=== PATIENT | female | born 1975 | race Caucasian/White ===

== ENCOUNTER 2020-05-04 15:37 | Outpatient (CLI) | payer BC, SELFPAY ==
--- NOTE | ~2020-05-04 | MR_ITS ---
EXAMINATION: MR brain IAC wo con DATE: 05/04/2020 16:45 INDICATION: Benign neoplasm of cerebral meninges. TECHNIQUE: Magnetic resonance imaging (MRI) of the brain, brainstem, and internal auditory canals was performed without intravenous contrast. Sequences included sagittal and axial T1-weighted FSE, axial diffusion-weighted FS EPI, axial T2*-weighted GRE, axial T2-weighted FLAIR Propeller, axial T2-weigh toya Propeller, small jwlnx-pt-[id number] coronal FIESTA, coronal FSPGR, coronal T2-weighted FLAIR, small fi eld-of-view coronal T1-weighted FSE, and small [id number]-th-bvtq axial T1-weighted SPGR. Apparent diffusi on coefficient (ADC) maps were created. COMPARISON: Brain MRI 04/08/2019, CT 05/20/2008 FINDINGS: There is 11 x 6 mm calcified extra-axial mass overlying left parietal lobe. There are scatt ered areas of nonspecific increased T2-weighted signal intensity in the cerebral white matter, which is within normal limits for the patient's age. There is no acute ischemic infarct or intracranial hem orrhage. The ventricles are normal in size. The orbits are normal. The paranasal sinuses are clear. T he mastoid air cells are normal. IMPRESSION: 1. Stable 11 x 6 mm calcified extra-axial mass overlying left parietal lobe, consistent with a mening ioma. Reviewed, dictated and finalized at location A. IMPRESSION: 1. Stable 11 x 6 mm calcified extra-axial mass overlying left parietal lobe, co nsistent with a meningioma.
== END 2020-05-04 15:38 | disposition home or self-care (01) ==
LOC: ANHIMG 15:40
PROVIDERS: PCP Emergency Medicine; Visit Provider Emergency Medicine
DX: D16.9 Benign neoplasm of bone and articular cartilage, unspecified (principal); D32.0 Benign neoplasm of cerebral meninges; R42 Dizziness and giddiness; R56.9 Unspecified convulsions
CPT/HCPCS: 70551

== ENCOUNTER 2020-06-08 15:46 | Outpatient (CLI) | payer BC, SELFPAY ==
--- NOTE | ~2020-06-08 | CT_ITS ---
EXAMINATION: CT brain wo con EXAM DATE: 06/08/2020 16:33 INDICATION: Dizziness, giddiness. TECHNIQUE: Spiral CT of the head was performed without contrast. Axial, coronal and sagittal images were reviewed. The dose-length product (DLP) for this examination was 605.33 mGy-cm. The exposure w as tailored according to patient size, and iterative reconstruction (ASIR) was used as additional dos e reduction technique. There is no prior study for comparison. FINDINGS: There is no acute intraparenchymal hemorrhage. No evidence of intraparenchymal brain mass lesion. No evidence of acute infarction. There is no mass effect or midline shift. The ventricles are normal in size. There are no extra-axial collections. There are no acute calvarial fractures. T he orbits are unremarkable. Soft tissue is unremarkable. The visualized sinuses and mastoid air madison ls are well aerated. IMPRESSION: 1. Normal head CT examination. Reviewed, dictated and finalized at location B.
== END 2020-06-08 15:47 | disposition home or self-care (01) ==
PROVIDERS: Visit Provider Emergency Medicine
DX: R42 Dizziness and giddiness (principal); D32.0 Benign neoplasm of cerebral meninges; R56.9 Unspecified convulsions
CPT/HCPCS: 70450

== ENCOUNTER 2020-06-16 10:03 | Emergency (ER) | payer BC, SELFPAY ==
[2020-06-16] VITALS (18 sets, daily range): BP systolic 110–137; BP diastolic 74–92; PULSE 59–79; RESP 13–31; TEMP 36.6; O2SAT 97–100
--- NOTE | ~2020-06-16 | CT_ITS ---
EXAMINATION: CT brain wo con DATE: 06/16/2020 11:55 INDICATION: Seizure. TECHNIQUE: Computed tomography (CT) of the head was performed without intravenous contrast. The mA wa s adjusted according to patient size. Iterative reconstruction technique was employed. The dose-lengt h product was 605.33 mGy-cm. COMPARISON: Head CT 06/08/2020, brain MRI 05/04/2020 FINDINGS: There is a calcified 11 x 6 x 15 mm extra-axial mass overlying left parietal lobe, consiste nt with a meningioma. There is no acute ischemic infarct or intracranial hemorrhage. The ventricles a re normal in size. The orbits are normal. The paranasal sinuses are clear. The mastoid air cells are normal. IMPRESSION: 1. Stable calcified extra-axial mass overlying left parietal lobe, consistent with a meningioma. Reviewed, dictated and finalized at location A. IMPRESSION: 1. Stable calcified extra-axial mass overlying left parietal lobe, consistent w ith a meningioma.
--- NOTE | 2020-06-16 10:10 | ECG_ITS ---
Measurements Intervals [place] Rate: 71 P: 46 [place]: 175 QRS: -13 QRSD: 89 T: 17 QT: 403 QTc: 440 Interpretive Statements SINUS RHYTHM RSR' IN V1 OR V2, CONSIDER RIGHT VENTRICULAR HYPERTROPHY OR RIGHT VCD LOW QRS VOLTAGE IN PRECORDIAL LEADS BORDERLINE T WAVE ABNORMALITY- ANT/INF LEADS BASELINE ARTIFACT- I, II, AVR, AVL, AVF, V5 BORDERLINE ECG Electronically Signed On 06-16-2020 10:21:57 CDT by Vic Matthew D.O.
[2020-06-16 10:58] LABS: Basophils Absolute Auto 0.1 K/mm3 (0.0-0.1); Basophils Percent Auto 0.7 % (0.2-1.2); Eosinophils Absolute Auto 0.5 K/mm3 (0-0.3); Hematocrit 42.9 % (37.0-47.0); Hemoglobin 13.9 g/dL (12.0-15.0); Immature Granulocyte Absolute 0.02 K/mm3 (0.00-0.031); Immature Granulocyte Percent A 0.3 % (0-0.5); Lymphocytes Absolute Auto 2.47 K/mm3 (0.9-3.2); Lymphocytes Percent Auto 32.7 % (18.3-44.2); Mean Corpuscular HGB Conc 32.4 g/dl (32-36); Mean Corpuscular Hemoglobin 27.7 pg (26-34); Mean Corpuscular Volume 85.5 fl (80-100); Mean Platelet Volume 10.5 fl (7.4-10.4); Monocytes Absolute Auto 0.5 K/mm3 (0.1-0.6); Monocytes Percent Auto 6.8 % (2.6-8.5); Neutrophils Absolute Auto 4.1 K/mm3 (1.3-6.7); Neutrophils Percent Auto 53.5 % (45.5-73.1); Platelet Count Result 286 k/mm3 (150-375); Red Blood Count 5.02 M/mm3 (4.2-5.4); Red Cell Distribution Width 13.4 % (11.5-14.5); White Blood Count 7.6 K/mm3 (4.5-10.0)
[2020-06-16 11:15] LABS: Alanine Aminotransferase 19 U/L (4-35); Albumin Level 4.2 g/dL (3.5-5.1); Alkaline Phosphatase 110 U/L (38-126); Anion Gap 10 mmol/L (8-16); Aspartate Amino Transferase 22 U/L (14-36); Bilirubin,Total 0.6 mg/dL (0.2-1.3); Blood Urea Nitrogen 9 mg/dL (7-17); Calcium 9.7 mg/dL (8.4-10.2); Carbon Dioxide 28 mmol/L (22-30); Chloride 103 mmol/L (98-107); Estimated CRCL calculation 87 ml/min; Estimated Glomerular Filt Rate > 60; Glucose 102 mg/dL (65-105); Potassium 3.8 mmol/L (3.4-5.0); Sodium 141 mmol/L (137-145)
[2020-06-16] MEDS: levETIRAcetam 1000MG/NACL100ML 1,000 MG/100 ML BAG 400 MG IVPB (11:34)
--- NOTE | 2020-06-16 11:39 | ED.SEIZURE ---
HPI - Seizure General Chief Complaint: Seizure Stated Complaint: SZ Time Seen by Provider: 06/16/20 10:18 Source: patient and family Limitations: no limitations History of Present Illness HPI Narrative: 44 years old white female presents with frequent seizure prior to arrival to the emergency room up to 3 times. Patient reports having the first seizure 1-1/2-year ago, had a new diagnosis of benign brain tumor and is scheduled for surgery at [facility] July 06, 2020. Patient started on Keppra 7 days ago. Patient reports having at least 3 seizures over the last 7 days but today had 3 of them [id number]. Patient reported having some nausea and not feeling well sometimes dizziness of vertigo subsequently followed by seizure. With loss of consciousness, generalized body convulsion, usually last up to 3 minutes followed by postictal confusion and lethargy up to 1 hour. The description of the seizure per patient . Currently patient feeling headache and nausea. Denies any pain. Related Data Home Medications Medication Instructions Recorded Confirmed estradiol 1 mg tablet 1 mg PO DAILY 04/28/20 Allergies Allergy/AdvReac Type Severity Reaction Status Date / Time iodixanol Allergy Mild itchey Verified 05/02/19 14:13 throat, hives, shaking, sneezing ioversol Allergy Unknown Verified 01/21/19 15:21 meperidine Allergy Unknown Verified 01/21/19 15:21 Contrast Media Allergy Intermediate Hives / Uncoded 05/02/19 14:13 Red Face Review of Systems Review of Systems: Narrative: CONSTITUTIONAL: Denies fever, chills, or sweats. EYES: Denies visual changes, redness, or discharge. ENT: Denies rhinorrhea, congestion, sore throat, or otalgia. CARDIOVASCULAR: Denies chest pain, palpitations, or edema. RESPIRATORY: Denies cough or dyspnea. GASTROINTESTINAL: Denies abdominal pain, nausea, vomiting, or diarrhea. GENITOURINARY: Denies dysuria or hematuria. SKIN: Denies rash or itching. MUSCULOSKELETAL: Denies back pain, joint pain, or myalgia. NEUROLOGIC: Denies headache, numbness, or weakness. PSYCHIATRIC: Denies anxiety or depression. [facility] Past Medical History Medical History (Updated 06/16/20 @ 12:57 by Jewel Lord MD) Depression Family History Family History Grandparent Family history of malignant neoplasm of breast Mother Diabetes mellitus Hypertension Patient's mother is in good health Father Patient's father is in good health Other Cerebrovascular accident Family history of alcoholism Family history of arthritis Family history of atrial fibrillation Family history of cardiovascular disease Family history of chronic obstructive pulmonary disease Family history of hepatitis Family history of lung cancer Family history of malignant neoplasm of male breast Family history of osteoporosis Social History Social History Smoking status: Never smoker Alcohol intake: current Exam Narrative: Exam Narrative: General appearance: Well-developed, well-nourished Skin: Normal color Head: Normocephalic, nontraumatic Eyes: Clear conjunctiva ENT: Oropharynx normal, ears normal, nose normal Neck: Supple, nontender Chest and respiratory: Airway patent, no respiratory distress, no accessory muscle use Heart: Regular rate/rhythm Abdomen: Soft, nontender, no organomegaly, quiet bowel sounds Vascular: Normal peripheral pulses, normal capillary refill. 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
[2020-06-16] MEDS: MORPHINE SULFATE (*CRX) 4 MG/ML INJ IV PUSH (12:25)
[2020-06-16 12:27] LABS: Add Urine Microscopic? NO; Appearance Urine Clear (Clear); Bilirubin Urine Negative (Negative); Blood Urine Negative (Negative); Color Urine Straw (Yellow); Glucose Urine UA Negative (Negative); Ketones Urine Negative (Negative); Leukocyte Esterase Ur Negative LEU/UL (Negative); Nitrate Urine Negative (Negative); Protein Urine Negative (Negative); Specific Grav Ur 1.006 (1.001-1.035); Urobilinogen Urine Negative mg/dL (<2.0)
== END 2020-06-16 14:02 | disposition home or self-care (01) ==
PROVIDERS: Emergency Provider Emergency Medicine
DX: G40.909 Epilepsy, unspecified, not intractable, without status epilepticus (principal); F32.9 Major depressive disorder, single episode, unspecified
CPT/HCPCS: 36415; 70450; 80053; 81003; 81025; 85025; 93005; 96374; 96375; 99284; J1953; J2270

== ENCOUNTER 2021-04-12 14:43 | Outpatient (CLI) | payer BC, SELFPAY ==
[2021-04-12 15:18] LABS: Hematocrit 43.7 % (37.0-47.0); Hemoglobin 13.6 g/dL (12.0-15.0); Mean Corpuscular HGB Conc 31.1 g/dl (32-36); Mean Corpuscular Hemoglobin 27.1 pg (26-34); Mean Corpuscular Volume 87.1 fl (80-100); Mean Platelet Volume 10.2 fl (7.4-10.4); Platelet Count Result 319 k/mm3 (150-375); Red Blood Count 5.02 M/mm3 (4.2-5.4); Red Cell Distribution Width 13.9 % (11.5-14.5); White Blood Count 10.2 K/mm3 (4.5-10.0)
[2021-04-12 15:37] LABS: Transferrin 270 mg/dL (206-381)
[2021-04-12 17:08] LABS: Iron 41 ug/dL (37-170)
[2021-04-12 17:19] LABS: Percent Iron Saturation 13 % (20-50)
== END 2021-04-12 14:44 | disposition home or self-care (01) ==
PROVIDERS: PCP Emergency Medicine; Visit Provider Internal Medicine Gastroenterology
DX: K92.2 Gastrointestinal hemorrhage, unspecified (principal); R10.84 Generalized abdominal pain; K92.1 Melena
CPT/HCPCS: 36415; 82728; 83540; 83550; 84466; 85027

== ENCOUNTER 2021-04-19 12:17 | Outpatient (CLI) | payer BC, SELFPAY ==
[2021-04-19 13:21] LABS: Hematocrit 44.8 % (37.0-47.0); Mean Corpuscular HGB Conc 31.3 g/dl (32-36); Mean Corpuscular Hemoglobin 26.8 pg (26-34); Mean Corpuscular Volume 85.8 fl (80-100); Platelet Count Result 314 k/mm3 (150-375); Red Blood Count 5.22 M/mm3 (4.2-5.4); Red Cell Distribution Width 13.6 % (11.5-14.5); White Blood Count 12.9 K/mm3 (4.5-10.0)
[2021-04-19 13:32] LABS: Cholesterol 237 mg/dL (0-200); HDL Direct 81 mg/dL; Triglycerides 138 mg/dL (<150)
[2021-04-19 13:49] LABS: LDL Cholesterol Direct 115 mg/dL
[2021-04-19 15:13] LABS: Vitamin D 25 Hydroxy 43.8 ng/mL
[2021-04-19 15:29] LABS: Erythrocyte Sedimentation Rate 19 mm/hr (0-20)
[2021-04-19 18:13] LABS: Rheumatoid Factor > 120.0 IU/ML (<12)
[2021-04-19 19:12] LABS: Iron 101 ug/dL (37-170); Percent Iron Saturation 29 % (20-50)
== END 2021-04-19 12:18 | disposition home or self-care (01) ==
PROVIDERS: PCP Emergency Medicine; Visit Provider Emergency Medicine
DX: Z00.00 Encounter for general adult medical examination without abnormal findings (principal)
CPT/HCPCS: 36415; 80061; 82306; 82728; 83540; 83550; 84439; 84443; 85027; 85652; 86038; 86430

== ENCOUNTER 2021-07-12 10:25 | Outpatient (CLI) | payer BC, SELFPAY ==
[2021-07-12 10:41] LABS: Basophils Absolute Auto 0.1 K/mm3 (0.0-0.1); Basophils Percent Auto 0.5 % (0.2-1.2); Eosinophils Absolute Auto 0.5 K/mm3 (0-0.3); Eosinophils Percent Auto 4.9 % (0-4.4); Hematocrit 44.4 % (37.0-47.0); Hemoglobin 14.3 g/dL (12.0-15.0); Immature Granulocyte Absolute 0.02 K/mm3 (0.00-0.031); Immature Granulocyte Percent A 0.2 % (0-0.5); Lymphocytes Percent Auto 32.4 % (18.3-44.2); Mean Corpuscular HGB Conc 32.2 g/dl (32-36); Mean Corpuscular Hemoglobin 26.9 pg (26-34); Mean Corpuscular Volume 83.5 fl (80-100); Mean Platelet Volume 10.1 fl (7.4-10.4); Monocytes Absolute Auto 0.6 K/mm3 (0.1-0.6); Monocytes Percent Auto 6.6 % (2.6-8.5); Neutrophils Absolute Auto 5.1 K/mm3 (1.3-6.7); Neutrophils Percent Auto 55.4 % (45.5-73.1); Platelet Count Result 335 k/mm3 (150-375); Red Blood Count 5.32 M/mm3 (4.2-5.4); Red Cell Distribution Width 13.3 % (11.5-14.5); White Blood Count 9.3 K/mm3 (4.5-10.0)
[2021-07-12 11:19] LABS: Alanine Aminotransferase 35 U/L (4-35); Albumin Level 4.9 g/dL (3.5-5.1); Alkaline Phosphatase 112 U/L (38-126); Anion Gap 6 mmol/L (8-16); Aspartate Amino Transferase 40 U/L (14-36); Bilirubin,Total 0.6 mg/dL (0.2-1.3); Blood Urea Nitrogen 12 mg/dL (7-17); CRP 1.2 mg/dL (<1.0); Calcium 10.3 mg/dL (8.4-10.2); Carbon Dioxide 29 mmol/L (22-30); Chloride 103 mmol/L (98-107); Estimated Glomerular Filt Rate > 60; Glucose 109 mg/dL (65-110); Potassium 4.3 mmol/L (3.4-5.0); Sodium 138 mmol/L (137-145)
[2021-07-12 12:07] LABS: Erythrocyte Sedimentation Rate 21 mm/hr (0-20)
== END 2021-07-12 10:26 | disposition home or self-care (01) ==
LOC: ANHLAB 10:28
PROVIDERS: PCP Emergency Medicine; Visit Provider Internal Medicine Hematology & Oncology
DX: D72.829 Elevated white blood cell count, unspecified (principal)
CPT/HCPCS: 36415; 80053; 85025; 85652; 86140; 88184

== ENCOUNTER 2021-09-09 13:43 | Outpatient (CLI) | payer BC, SELFPAY ==
--- NOTE | ~2021-09-09 | XR_ITS ---
EXAMINATION: XR chest 2V EXAM DATE: 09/09/2021 14:00 INDICATION: UPI TECHNIQUE: Frontal and lateral projections of the chest obtained and reviewed. There is no prior madelin dy for comparison. FINDINGS: The lungs are clear. There are no pleural effusions. The cardiomediastinal silhouette is within normal limits. There is no pneumothorax suspected. The bones and soft tissues are unremarkab le. There are cholecystectomy clips. The IMPRESSION: No acute cardiopulmonary findings. Reviewed, dictated and finalized at location A. DITARY CANCER PROGRAM COORDINATOR
== END 2021-09-09 13:44 | disposition home or self-care (01) ==
LOC: ANHIMG 13:47
PROVIDERS: PCP Emergency Medicine; Visit Provider Emergency Medicine
DX: J06.9 Acute upper respiratory infection, unspecified (principal); R05.9 Cough, unspecified
CPT/HCPCS: 71046

== ENCOUNTER → 2021-09-15 11:31 | Outpatient (CLI) | payer BC, SELFPAY ==
[2021-09-15 21:18] LABS: SARS-CoV-2 RNA PCR Negative
== END ==
PROVIDERS: PCP Emergency Medicine; Visit Provider Emergency Medicine
DX: J06.9 Acute upper respiratory infection, unspecified (principal); Z20.822 Contact with and (suspected) exposure to COVID-19
CPT/HCPCS: C9803; U0003; U0005

== ENCOUNTER 2021-09-23 13:53 | Outpatient (CLI) | payer BC, SELFPAY ==
--- NOTE | ~2021-09-23 | MM_ITS ---
EXAMINATION: MM screening [facility] BI w dimas HISTORY: Screening TECHNIQUE: Craniocaudal and mediolateral oblique 3-D tomosynthesis images were obtained and synthetic 2-D images were generated. CAD analysis was submitted and interpreted. COMPARISON: Comparison to multiple prior studies sequentially, with oldest reviewed study dated 04/2015. BREAST PARENCHYMAL COMPOSITION: There are scattered areas of fibroglandular density. FINDINGS: There is no evidence of suspicious mass, calcification, or architectural distortion to sugg est malignancy in either breast. There has been no suspicious interval change. IMPRESSION: 1. No mammographic evidence of malignancy. 2. Recommend routine screening mammography in one year. BI-RADS Category 1: Negative Reviewed, dictated and finalized at location A. RVISOR FISHING
== END 2021-09-23 13:54 | disposition home or self-care (01) ==
PROVIDERS: PCP Emergency Medicine; Visit Provider Obstetrics & Gynecology
DX: Z12.31 Encounter for screening mammogram for malignant neoplasm of breast (principal)
CPT/HCPCS: 77063; 77067

== ENCOUNTER 2021-10-26 13:45 | Outpatient (CLI) | payer BC, SELFPAY ==
[2021-10-26 14:20] LABS: Hematocrit 41.7 % (37.0-47.0); Hemoglobin 13.6 g/dL (12.0-15.0); Mean Corpuscular HGB Conc 32.6 g/dl (32-36); Mean Corpuscular Hemoglobin 27.5 pg (26-34); Mean Corpuscular Volume 84.4 fl (80-100); Mean Platelet Volume 10.3 fl (7.4-10.4); Platelet Count Result 283 k/mm3 (150-375); Red Blood Count 4.94 M/mm3 (4.2-5.4); Red Cell Distribution Width 14.1 % (11.5-14.5); White Blood Count 9.3 K/mm3 (4.5-10.0)
== END 2021-10-26 13:46 | disposition home or self-care (01) ==
LOC: ANHLAB 13:47
PROVIDERS: PCP Emergency Medicine; Visit Provider Emergency Medicine
DX: R11.2 Nausea with vomiting, unspecified (principal); D72.829 Elevated white blood cell count, unspecified
CPT/HCPCS: 36415; 85027

== ENCOUNTER 2022-03-30 16:10 | Outpatient (CLI) | payer BC, SELFPAY ==
--- NOTE | ~2022-03-30 | XR_ITS ---
EXAMINATION: XR chest 2V 03/30/2022 16:24 INDICATION: Cough and wheezing. Shortness of breath. PROCEDURE: 2 view chest COMPARISON: Comparison to multiple prior studies sequentially, with oldest reviewed study dated 05/2010. FINDINGS: The lungs are clear. The cardiomediastinal silhouette is within normal limits. There are no pleural effusions. There is no pneumothorax suspected. IMPRESSION: 1: NO ACUTE CARDIOPULMONARY DISEASE. Reviewed, dictated and finalized at location A.
== END 2022-03-30 16:11 | disposition home or self-care (01) ==
PROVIDERS: PCP Emergency Medicine; Visit Provider Emergency Medicine
DX: R05.9 Cough, unspecified (principal); R06.2 Wheezing; R06.02 Shortness of breath
CPT/HCPCS: 71046

== ENCOUNTER 2022-04-04 12:41 | Outpatient (CLI) | payer BC, SELFPAY ==
[2022-04-04 13:01] LABS: Hematocrit 45.6 % (37.0-47.0); Hemoglobin 14.3 g/dL (12.0-15.0); Mean Corpuscular HGB Conc 31.4 g/dl (32-36); Mean Platelet Volume 10.1 fl (7.4-10.4); Platelet Count Result 344 k/mm3 (150-375); Red Cell Distribution Width 14.5 % (11.5-14.5); White Blood Count 10.5 K/mm3 (4.5-10.0)
[2022-04-04 13:19] LABS: Alanine Aminotransferase 48 U/L (6-35); Albumin Level 4.7 g/dL (3.5-5.1); Alkaline Phosphatase 100 U/L (38-126); Anion Gap 12 mmol/L (8-16); Aspartate Amino Transferase 35 U/L (14-36); Bilirubin,Total 0.6 mg/dL (0.2-1.3); Blood Urea Nitrogen 16 mg/dL (7-17); Calcium 9.4 mg/dL (8.4-10.2); Carbon Dioxide 25 mmol/L (22-30); Chloride 103 mmol/L (98-107); Cholesterol 264 mg/dL (0-200); Estimated Glomerular Filt Rate > 60; Glucose 114 mg/dL (65-110); HDL Direct 61 mg/dL; Sodium 140 mmol/L (137-145); Triglycerides 238 mg/dL (<150)
[2022-04-04 13:29] LABS: LDL Cholesterol Direct 152 mg/dL
[2022-04-04 13:43] LABS: Iron 91 ug/dL (37-170)
[2022-04-04 13:52] LABS: Percent Iron Saturation 24 % (20-50)
[2022-04-04 13:59] LABS: Free T4 Free Thyroxine 0.99 ng/mL (0.78-2.19)
== END 2022-04-04 12:42 | disposition home or self-care (01) ==
LOC: ANHLAB 12:43
PROVIDERS: PCP Emergency Medicine; Visit Provider Emergency Medicine
DX: F41.9 Anxiety disorder, unspecified (principal); F32.9 Major depressive disorder, single episode, unspecified; E78.5 Hyperlipidemia, unspecified; R56.9 Unspecified convulsions
CPT/HCPCS: 36415; 80053; 80061; 83540; 83550; 84439; 84443; 85027

== ENCOUNTER 2022-04-06 14:57 | Outpatient (CLI) | payer BC, SELFPAY ==
[2022-04-06 20:12] LABS: Hepatitis B Surface Antigen Negative (Negative)
[2022-04-06 20:18] LABS: HAV RESULT Negative (Negative); Hepatitis B Core IgM Result Negative (Negative)
[2022-04-06 20:30] LABS: Hepatitis C Virus Antibody Negative (Negative)
[2022-04-09 03:07] LABS: Thyroid Peroxidase Antibodies <1 IU/mL (<9)
[2022-04-09 11:24] LABS: Triiodothyronine T3 Free 2.8 pg/mL (2.3-4.2)
== END 2022-04-06 14:58 | disposition home or self-care (01) ==
LOC: ANHLAB 15:04
PROVIDERS: PCP Emergency Medicine; Visit Provider Emergency Medicine
DX: R94.5 Abnormal results of liver function studies (principal)
CPT/HCPCS: 36415; 80074; 84481; 86376

== ENCOUNTER 2022-04-07 11:46 | Outpatient (CLI) | payer BC, SELFPAY ==
[2022-04-07 12:07] LABS: Basophils Absolute Auto 0.1 K/mm3 (0.0-0.1); Basophils Percent Auto 0.6 % (0.2-1.2); Eosinophils Absolute Auto 0.5 K/mm3 (0-0.3); Eosinophils Percent Auto 4.6 % (0-4.4); Hematocrit 43.9 % (37.0-47.0); Hemoglobin 13.8 g/dL (12.0-15.0); Immature Granulocyte Absolute 0.03 K/mm3 (0.00-0.031); Immature Granulocyte Percent A 0.3 % (0-0.5); Lymphocytes Absolute Auto 3.73 K/mm3 (0.9-3.2); Lymphocytes Percent Auto 33.2 % (18.3-44.2); Mean Corpuscular HGB Conc 31.4 g/dl (32-36); Mean Corpuscular Hemoglobin 26.7 pg (26-34); Mean Corpuscular Volume 84.9 fl (80-100); Mean Platelet Volume 9.9 fl (7.4-10.4); Monocytes Absolute Auto 0.8 K/mm3 (0.1-0.6); Monocytes Percent Auto 7.1 % (2.6-8.5); Neutrophils Absolute Auto 6.1 K/mm3 (1.3-6.7); Neutrophils Percent Auto 54.2 % (45.5-73.1); Platelet Count Result 345 k/mm3 (150-375); Red Blood Count 5.17 M/mm3 (4.2-5.4); Red Cell Distribution Width 14.4 % (11.5-14.5); White Blood Count 11.2 K/mm3 (4.5-10.0)
[2022-04-07 12:16] LABS: Alanine Aminotransferase 35 U/L (6-35); Albumin Level 4.6 g/dL (3.5-5.1); Alkaline Phosphatase 98 U/L (38-126); Anion Gap 10 mmol/L (8-16); Aspartate Amino Transferase 27 U/L (14-36); Bilirubin,Total 0.5 mg/dL (0.2-1.3); Blood Urea Nitrogen 14 mg/dL (7-17); Calcium 9.4 mg/dL (8.4-10.2); Carbon Dioxide 25 mmol/L (22-30); Chloride 103 mmol/L (98-107); Estimated Glomerular Filt Rate > 60; Glucose 111 mg/dL (65-110); Sodium 138 mmol/L (137-145)
== END 2022-04-07 11:47 | disposition home or self-care (01) ==
LOC: ANHLAB 11:49
PROVIDERS: PCP Emergency Medicine; Visit Provider Emergency Medicine
DX: D72.829 Elevated white blood cell count, unspecified (principal)
CPT/HCPCS: 36415; 80053; 85025

== ENCOUNTER → 2022-04-11 08:23 | Outpatient (CLI) | payer BC, SELFPAY ==
--- NOTE | ~2022-04-11 | US_ITS ---
US abdomen limited INDICATION: Limited liver enzymes. Post cholecystectomy. PROCEDURE: Realtime right upper abdominal ultrasound. COMPARISON: CT dated 10/07/2014 FINDINGS: The pancreas is normal without focal mass or pancreatic ductal dilation. Liver echotexture is increased, consistent with fatty infiltration. There is normal directional flow in the portal ve in. Gallbladder is surgically absent. Common bile duct measures 4 mm. No sonographic 's sign. IMPRESSION: 1: Hepatic steatosis. 2: Status post cholecystectomy. Reviewed, dictated and finalized at location A.
== END ==
LOC: EXPGOSHRAD 08:25
PROVIDERS: PCP Emergency Medicine; Visit Provider Emergency Medicine
DX: R74.8 Abnormal levels of other serum enzymes (principal); K76.0 Fatty (change of) liver, not elsewhere classified; Z90.49 Acquired absence of other specified parts of digestive tract
CPT/HCPCS: 76705

== ENCOUNTER 2022-06-02 16:42 | Outpatient (CLI) | payer SELFPAY ==
--- NOTE | ~2022-06-02 | XR_ITS ---
EXAMINATION: XR chest 2V DATE: 06/02/2022 17:02 INDICATION: Shortness of breath TECHNIQUE: PA and lateral views of the chest were obtained. COMPARISON: Chest radiograph dated 03/30/2022 FINDINGS: The lungs remain clear with no focal airspace opacities, pulmonary edema, pleural effusion or pneumot horax. The cardiomediastinal silhouette is normal. Visualized bones and soft tissues are unremarkable . IMPRESSION: 1. No acute cardiopulmonary disease. Reviewed, dictated and finalized at location A.
== END 2022-06-02 16:43 | disposition home or self-care (01) ==
LOC: ANHIMG 16:47
PROVIDERS: PCP Emergency Medicine; Visit Provider Emergency Medicine
DX: R06.02 Shortness of breath (principal)
CPT/HCPCS: 71046

== ENCOUNTER → 2022-06-03 00:17 | Outpatient (CLI) | payer SELFPAY ==
[2022-06-03 11:45] LABS: SARS-CoV-2 RNA PCR Negative
== END ==
PROVIDERS: PCP Emergency Medicine; Visit Provider Emergency Medicine
DX: Z20.822 Contact with and (suspected) exposure to COVID-19 (principal)
CPT/HCPCS: C9803; U0003; U0005

== ENCOUNTER 2022-09-19 15:32 | Outpatient (CLI) | payer OTHER, SELFPAY ==
--- NOTE | ~2022-09-19 | XR_ITS ---
EXAMINATION: XR chest 2V 09/19/2022 15:55 INDICATION: Cough for 2 weeks PROCEDURE: 2 view chest COMPARISON: Comparison to multiple prior studies sequentially, with oldest reviewed study dated 11/2014. FINDINGS: The lungs are clear. The cardiomediastinal silhouette is within normal limits. There are no pleural effusions. There is no pneumothorax suspected. There are cholecystectomy clips. IMPRESSION: 1: NO ACUTE CARDIOPULMONARY DISEASE. Reviewed, dictated and finalized at location A. T WORKER
== END 2022-09-19 15:33 | disposition home or self-care (01) ==
PROVIDERS: PCP Emergency Medicine; Visit Provider Emergency Medicine
DX: R05.9 Cough, unspecified (principal)
CPT/HCPCS: 71046

== ENCOUNTER 2022-11-03 12:46 | Outpatient (CLI) | payer OTHER, SELFPAY ==
--- NOTE | ~2022-11-03 | MMUS_ITS ---
EXAMINATION: MM diagnostic neli BI w dimas, US breast BI complete HISTORY: 2 left breast lumps, dense right breast TECHNIQUE: Full field and spot ML, MLO and CC 3-D tomosynthesis images of both breasts were performed and synthetic 2-D images were generated. CAD analysis was submitted and interpreted. High resolution bilateral complete breast ultrasound examination including all 4 quadrants and subareolar areas was performed. COMPARISON: 09/23/2021 bilateral screening mammogram 09/09/2019 diagnostic right mammogram 09/09/2019 diagnostic right mammogram and limited right breast ultrasound 08/30/2019 diagnostic bilateral mammogram 01/17/2019 limited right breast ultrasound 08/10/2018 bilateral diagnostic mammography and bilateral complete breast ultrasound examination Breast parenchymal composition: There are scattered areas of fibroglandular density. FINDINGS: MAMMOGRAPHIC FINDINGS: Stable mild fibroglandular asymmetry. History of bilateral reduction mammoplasty. History of multiple benign biopsies of the breasts. No interval suspicious mass or new architectural distortion, malignant calcification, skin thickening or retraction is evident. ULTRASOUND: No suspicious mass, shadowing, cyst or other significant sonographic abnormality is detected and left breast or left axilla. IMPRESSION: 1. No evidence of malignancy 2. Routine annual mammographic screening is recommended BI-RADS Category 2: Benign finding(s). Reviewed, dictated and finalized at location A. TOP LIFT SPLITTER IMPRESSION: 1. No evidence of malignancy 2. Routine annual mammographic screening is recommended BI-RADS Category 2: Benign finding(s).
== END 2022-11-03 12:47 | disposition home or self-care (01) ==
PROVIDERS: PCP Emergency Medicine; Visit Provider Student in an Organized Health Care Education/Training Program
DX: N63.20 Unspecified lump in the left breast, unspecified quadrant (principal); R92.2 Inconclusive mammogram
CPT/HCPCS: 76641; 77062; 77066; G0279

== ENCOUNTER 2022-11-17 17:08 | Emergency (ER) | payer OTHER, SELFPAY ==
[2022-11-17 17:15] VITALS: BP 123/93; PULSE 93; RESP 16; TEMP 37; O2SAT 100
--- NOTE | 2022-11-17 17:16 | ED.URI ---
HPI - URI/Sore Throat General Chief Complaint: Upper Respiratory Infection Stated Complaint: CHEST COLD Time Seen by Provider: 11/17/22 17:22 Source: patient and RN notes reviewed Mode of arrival: ambulatory Limitations: no limitations History of Present Illness HPI Narrative: 47-year-old female presents concern for a chest cold. Reports she started coughing on Monday and has been having nasal congestion rhinorrhea. She reports right ear pain. She reports she feels a ?vibration? on her right side when she lays down. She reports low-grade fever, reports a feeling of situational shortness of breath. MD elicited complaint: cough Related Data Home Medications Medication Instructions Recorded Confirmed estradiol 1 mg tablet 1 mg PO DAILY 10/18/22 11/17/22 metoprolol tartrate 25 mg tablet 25 mg PO BID 10/18/22 11/17/22 simvastatin 20 mg tablet 20 mg PO DAILY 10/18/22 Allergies Allergy/AdvReac Type Severity Reaction Status Date / Time meperidine Allergy Severe Vomiting Verified 11/17/22 17:20 ioversol Allergy Intermediate Hives Verified 11/17/22 17:20 iodixanol Allergy Mild itchey Verified 11/17/22 17:20 throat, hives, shaking, sneezing Contrast Media Allergy Intermediate Hives / Uncoded 11/17/22 17:20 Red Face Review of Systems Review of Systems: CONSTITUTIONAL: Reports malaise, low-grade fever. EYES: Denies visual changes, redness, or discharge. ENT: Reports rhinorrhea, congestion. Denies sinus pain, otalgia and sore throat. CARDIOVASCULAR: Denies chest pain, palpitations, or edema. RESPIRATORY: Reports cough and chest congestion, situational dyspnea. GASTROINTESTINAL: Denies abdominal pain, nausea, vomiting, diarrhea SKIN: Denies rash or itching. MUSCULOSKELETAL: Denies myalgia. NEUROLOGIC: Denies headache. All systems reviewed & are unremarkable except as noted in HPI and below PMFSH Past Medical History Medical History (Updated 11/17/22 @ 17:31 by Candi Trejo NP) Depression Encounter for gynecological examination Fibrous breast lumps Hyperlipidemia Screening for breast cancer Surgical History Surgical History (Updated 10/18/22 @ 14:03 by Yoana Clement CMA) H/O: hysterectomy History of delivery 3 History of tonsillectomy Hx of appendectomy Family History Family History Grandparent Family history of malignant neoplasm of breast Mother Diabetes mellitus Hypertension Patient's mother is in good health Father Patient's father is in good health Other Cerebrovascular accident Family history of alcoholism Family history of arthritis Family history of atrial fibrillation Family history of cardiovascular disease Family history of chronic obstructive pulmonary disease Family history of hepatitis Family history of lung cancer Family history of malignant neoplasm of male breast Family history of osteoporosis Social History Social History (Updated 10/18/22 @ 14:04 by Yoana Clement [facility]) Smoking status: Never smoker Alcohol intake: current Substance use: never Living arrangements: other Additional living arrangements comments: Occupation/Education: occupation Gender identity (if verbalized by the patient): Female Sexual Orientation (if Verbalized by the Patient): Straight or Heterosexual Comments At time of signature, agree with nursing past medical, surgical, social and family history. There is no relevant family history pertinent to the presenting complaint Exam Narrative: GENERAL: Mom toxic appearing and in no acute distress. HEAD: Normocephalic EYES: PERRLA, conjunctivae clear ENT: Nares clear, turbinates edematous and erythematous, clear discharge. Mucous membranes moist. TM pearly adams with dull light reflex bilaterally; no tragal tenderness. Oropharynx not erythematous without lesions. Tonsils not enlarged and without exudate, no drooling, no hoarseness
== END 2022-11-17 17:41 | disposition home or self-care (01) ==
PROVIDERS: Emergency Provider Nurse Practitioner; PCP Emergency Medicine
DX: J40 Bronchitis, not specified as acute or chronic (principal); E78.5 Hyperlipidemia, unspecified; F32.A Depression, unspecified
CPT/HCPCS: 99213; G0463

== ENCOUNTER 2023-09-19 10:43 | Outpatient (CLI) | payer OTHER, SELFPAY ==
--- NOTE | ~2023-09-19 | MMUS_ITS ---
EXAMINATION: MM diagnostic neli BI w dimas, US breast LT limited HISTORY: Palpable left breast abnormality TECHNIQUE: Additional 3-D tomosynthesis images of the breasts were performed and synthetic 2-D images were generated. CAD analysis was submitted and interpreted. High resolution Limited left breast ultr asound was performed. COMPARISON: Comparison to multiple prior studies sequentially, with oldest reviewed study dated 04/2015. BREAST PARENCHYMAL COMPOSITION: Breast composed of scattered areas of fibroglandular density FINDINGS: MAMMOGRAPHIC FINDINGS: There are no suspicious masses, calcifications or architectural distortion in either breast to sugges t malignancy. There is a skin mass in the upper inner quadrant of the left breast. ULTRASOUND: Limited left breast ultrasound: Normal heterogeneous echotexture without focal solid or cystic mass. IMPRESSION: 1. No evidence for malignancy in either breast. 2. Routine yearly screening mammogram and regular clinical breast examination are recommended. BI-RADS Category 1: Negative Reviewed, dictated and finalized at location A. R CONTROL OPERATOR IMPRESSION: 1. No evidence for malignancy in either breast. 2. Routine yearly screening mammogram and regular clinical breast examination a re recommended. BI-RADS Category 1: Negative
== END 2023-09-19 10:44 | disposition home or self-care (01) ==
PROVIDERS: PCP Emergency Medicine; Visit Provider Student in an Organized Health Care Education/Training Program
DX: N63.20 Unspecified lump in the left breast, unspecified quadrant (principal); R92.8 Other abnormal and inconclusive findings on diagnostic imaging of breast
CPT/HCPCS: 76642; 77062; 77066; G0279

== ENCOUNTER 2024-06-05 14:21 | Emergency (ER) | payer OTHER, SELFPAY ==
[2024-06-05 14:35] VITALS: BP 118/99; PULSE 77; RESP 16; TEMP 36.6; O2SAT 98
--- NOTE | 2024-06-05 14:45 | ED.URI ---
HPI - URI/Sore Throat General Chief Complaint: Upper Respiratory Infection Stated Complaint: cold symptoms Time Seen by Provider: 06/05/24 14:39 Source: patient and RN notes reviewed Mode of arrival: ambulatory Limitations: no limitations History of Present Illness HPI Narrative: Patient presents today with a 4 day history of sore throat, cough, congestion, fatigue, subjective fever, nausea, headache, diarrhea. She has tried some DayQuil with some short-term relief and is currently pain-free. No history of asthma or COPD. Denies any known sick contacts. Related Data Allergies Allergy/AdvReac Type Severity Reaction Status Date / Time meperidine Allergy Severe Vomiting Verified 06/05/24 14:34 ioversol Allergy Intermediate Hives Verified 06/05/24 14:34 iodixanol Allergy Mild itchey Verified 06/05/24 14:34 throat, hives, shaking, sneezing Contrast Media Allergy Intermediate Hives / Uncoded 06/05/24 14:34 Red Face Review of Systems Review of Systems: CONSTITUTIONAL: Denies body aches, chills, or sweats.+ subjective fever, fatigue EYES: Denies visual changes, redness, or discharge. ENT: Denies rhinorrhea, or otalgia.+ congestion, sore throat CARDIOVASCULAR: Denies chest pain, palpitations, or edema. RESPIRATORY: + cough GASTROINTESTINAL: Denies abdominal pain, vomiting. + nausea, diarrhea GENITOURINARY: Denies dysuria or hematuria. SKIN: Denies rash, itching, or wounds. MUSCULOSKELETAL: Denies back pain, joint pain, or myalgia. NEUROLOGIC: Denies numbness, tingling, or weakness.+ headache PSYCH: Denies depression or anxiety. [facility] Past Medical History Medical History Depression Encounter for gynecological examination Fibrous breast lumps Hyperlipidemia Screening for breast cancer Surgical History Surgical History H/O: hysterectomy History of delivery 3 History of tonsillectomy Hx of appendectomy Family History Family History Grandparent Family history of malignant neoplasm of breast Mother Diabetes mellitus Hypertension Patient's mother is in good health Father Patient's father is in good health Other Cerebrovascular accident Family history of alcoholism Family history of arthritis Family history of atrial fibrillation Family history of cardiovascular disease Family history of chronic obstructive pulmonary disease Family history of hepatitis Family history of lung cancer Family history of malignant neoplasm of male breast Family history of osteoporosis Social History Social History Smoking status: Never smoker Alcohol intake: current Substance use: never Living arrangements: other Additional living arrangements comments: Occupation/Education: occupation Gender identity (if verbalized by the patient): Female Sexual Orientation (if Verbalized by the Patient): Straight or Heterosexual Comments At time of signature, I have reviewed and agree with nursing past medical, surgical, social and family history unless otherwise noted. Please see nursing chart for further information. There is no relevant family history pertinent to the presenting complaint Exam Narrative: GENERAL: Mildly ill-appearing, well-nourished, and in no acute distress. HEAD: Normocephalic, atraumatic. EYES: EOMI. No redness or drainage. Conjunctivae normal. ENT: Mucous membranes pink and moist. Nares clear. No rhinorrhea. TMs normal bilaterally. Throat normal. Uvula midline. NECK: Normal AROM. Supple. No lymphadenopathy. CHEST: No respiratory distress. Clear to auscultation. HEART: Regular rate and rhythm. No murmur appreciated. EXTREMITIES: Normal range of motion. No edema. SKIN: Warm, dry, no rash. Capil
[2024-06-05 14:50] LABS: EDCOVIDSCREEN Negative (Negative); EDINFLUASCREEN Negative (Negative); EDINFLUBSCREEN Negative (Negative); EDSTREPNEGPOS1 Negative (Negative)
== END 2024-06-05 15:03 | disposition home or self-care (01) ==
PROVIDERS: Emergency Provider Nurse Practitioner
DX: B34.9 Viral infection, unspecified (principal); Z20.822 Contact with and (suspected) exposure to COVID-19; E78.5 Hyperlipidemia, unspecified
CPT/HCPCS: 87081; 87426; 87804; 87880; 99213; G0463

== ENCOUNTER 2024-10-17 12:16 | Outpatient (CLI) | payer BC, SELFPAY ==
--- NOTE | ~2024-10-17 | XR_ITS ---
Left Shoulder Technique: AP and axillary views were obtained. Clinical History: Pain Findings: No fracture or dislocation is seen. Osseous alignment is anatomic. The glenohumeral and acr omioclavicular joint spaces are preserved. Soft tissues are unremarkable. Impression: Unremarkable left shoulder radiographs. Reviewed, dictated and finalized at [facility]. R PRODUCT CUTTING MACHINE OPERATOR Impression: Unremarkable left shoulder radiographs.
--- OUTSIDE RECORDS SUMMARY | 2024-10-17 12:28 | XMS_ITS | Referral Summary ---
Author Organization [facility] Address [facility] [place] [address] Care Team Providers Care Cripple Chaser Name Role Phone Arun Khan MD Primary Care Provider [phone] Allergies Active Allergy Reactions Criticality Noted Date Comments Iodinated Contrast Media Hives,Other (See comments) Medium 12/20/2016 Meperidine Nausea & Vomiting,Vomiting Medium 7 Oseltamivir Seizures High 09/25/2019 Medications estradiol (ESTRACE) 1 mg tablet Take 1 mg by mouth daily Active sertraline (ZOLOFT) 100 mg tablet Take 50 mg by mouth daily Active ondansetron ODT (ZOFRAN-ODT) 4 mg disintegrating tablet Take 1 tablet (4 mg total) by mouth every 8 (eight) hours as needed for nausea 20 tablet 04/08/20 21 Active Additional Information Patient not taking.Reported on 05/19/2022 buPROPion XL (WELLBUTRIN XL) 150 mg 24 hr tablet Take 150 mg by mouth daily 04/06/20 22 Active metoprolol tartrate (LOPRESSOR) 25 mg immediate release tablet Take by mouth 10/28/19 22 Active simvastatin (ZOCOR) 20 mg tablet 04/06/20 22 Active Active Problems Problem Noted Date Diagnosed Date High serum thyroid stimulating hormone (TSH) Assessment & Plan (05/19/2022 2:04 PM CDT): Patient with family history of thyroid disease She was found to have TSH of 6.2 on 04/04/22 No thyromegaly This could be sub-clinical hypothyroidism with normal free T4 Plan: The abnormal labs reviewed and explained to patient We will check TFT We will start treatment if TSH remained high otherwise the test can be monitored. Patient understands and agrees with above plan. Mixed hyperlipidemia 05/19/2022 Assessment & Plan (05/19/2022 2:06 PM CDT): Patient is now on Zocor - continue medication per PCP Seizure 02/03/2021 Benign neoplasm of brain 07/01/2020 Abdominal pain 06/18/2020 Acute bronchitis 06/18/2020 Biliary colic 06/18/2020 Cough 06/18/2020 Depressive disorder 06/18/2020 Fatigue 06/18/2020 Nonalcoholic fatty liver disease 06/18/2020 Malaise and fatigue 06/18/2020 Iron deficiency 06/18/2020 Insomnia 06/18/2020 Fvblo-Kylrufrrr-Hfqsv pattern 06/18/2020 Sinusitis 06/18/2020 Pulmonary embolism 06/18/2020 Postsurgical menopause 06/18/2020 Abnormal findings on diagnostic imaging of breas t 09/26/2019 Breast mass 09/26/2019 Social History Tobacco Use Types Packs/Day Years Used Date Smoking Tobacco: Never Smokeless Tobacco: Never Tobacco Cessation:Counseling Given: Not Answered Alcohol Use Standard Drinks/Week Comments Not Currently 0 (1 standard drink = 0.6 oz pur e alcohol) Personal Safety Answer Date Recorded Getting School Help Needed Not on file 08/21 Comments No Sex and Gender Information Value Date Recorded Sex Assigned at Not on file Legal Sex Female 10:03 AM PHOSPHORIC ACID OPERATOR Gender Identity Not on file Sexual Orientation Not on file Last Filed Vital Signs Vital Sign Reading Time Taken Comments Blood Pressure 100/60 05/19/2022 1:36 PM CDT Pulse 102 07/29/2021 2:56 PM PHOSPHORIC ACID OPERATOR Temperature 36.4 C (97.5 F) 07/29/2021 2:56 PM PHOSPHORIC ACID OPERATOR Respiratory Rate 19 07/29/2021 4:05 PM PHOSPHORIC ACID OPERATOR Oxygen Saturation 99% 07/29/2021 4:05 PM PHOSPHORIC ACID OPERATOR Inhaled Oxygen Concentration - - Weight 101.7 kg (224 lb 3.2 oz) 05/19/2022 1:36 PM CDT Height 165.1 cm (5' 5 ) 05/19/2022 1:36 PM CDT Body Mass Index 37.31 05/19/2022 1:36 PM CDT Plan of Treatment Not on file [place] OTHER Advance Directives For more information, please contact: [phone] * Full Code (Latest Code Status on File) Date Activated Date Inactivated Comments 02/03/2021 9:55 AM 02/07/2021 6:01 PM * Full Code Date Activated Date Inactivated Comments 06/22/2020 8:54 PM 06/23/2020 3:16 AM Care Teams Cripple Chaser Relationship Specialty Start Date End Date Arun Khan MD PCP - General Emergency Medicine 04/08/21
--- OUTSIDE RECORDS SUMMARY | 2024-10-17 12:28 | XMS_ITS | Referral Summary ---
Author Organization [facility] Address [address] [facility] [place] [address] Care Team Providers Care Field Crop Harvest Contractor Name Role Phone Arun Khan MD Primary Care Provider [phone] Source Comments [facility],non-owned Affiliates and Associated Physician Practices is amultiple site organization consisting of ambulatory clinics and hospital sitesin [place] and [place]. This disclosure is being madepursuant to the Care Everywhere program and may not contain all information available regarding this patient. Last updated 18.[facility] Allergies Active Allergy Reactions Criticality Noted Date Comments Contrast-Iodinated Agents For Ct/Other 12/20/2016 Meperidine GI Discomfort 12/20/2016 Oseltamivir Seizures High 09/25/2019 Tamiflu Seizures High 07/18/2022 Medications * Be aware that medications may not be up to date on this document. Alwaysverify current medications with the patient. Medication Sig Dispensed Refills Start Date End Date Status BuPROPion HCl (WELLBUTRIN PO) Take 150 mg by mouth once daily Active estradiol (ESTRACE) 1 MG tablet Take 1 mg by mouth once daily Active Multiple Vitamin (MULTI-VITAMIN DAILY PO) Active diazePAM (Valium) 5 MG tabletIndications:Lef t ear pain,TMJ (temporomandibular joint disorder),Bruxism Take 1 (one) tablet by mouth once daily 30 tablet 07/18/2022 Active Active Problems No known active problems Social History Tobacco Use Types Packs/Day Years Used Date Smoking Tobacco: Never Smokeless Tobacco: Never Tobacco Cessation:Counseling Given: Not Answered Sex and Gender Information Value Date Recorded Sex Assigned at Not on file Gender Identity Not on file Sexual Orientation Not on file Last Filed Vital Signs Vital Sign Reading Time Taken Comments Blood Pressure 131/87 07/18/2022 8:47 AM MANUFACTURING SOFTWARE ENGINEER Pulse 111 07/18/2022 8:47 AM MANUFACTURING SOFTWARE ENGINEER Temperature 36.1 C (97 F) 09/14/2021 10:59 AM MANUFACTURING SOFTWARE ENGINEER Respiratory Rate 16 09/14/2021 10:59 AM MANUFACTURING SOFTWARE ENGINEER Oxygen Saturation 98% 09/14/2021 10:59 AM MANUFACTURING SOFTWARE ENGINEER Inhaled Oxygen Concentration - - Weight 102.5 kg (226 lb) 07/18/2022 8:47 AM MANUFACTURING SOFTWARE ENGINEER Height 165.1 cm (5' 5 ) 07/18/2022 8:47 AM MANUFACTURING SOFTWARE ENGINEER Body Mass Index 37.61 07/18/2022 8:47 AM MANUFACTURING SOFTWARE ENGINEER Plan of Treatment Not on file Procedures Procedure Name Priority Date/Time Associated Diagnosis Comments HEPATITIS SCREEN ACUTE Routine 05/27/2021 3:47 PM CDT Rheumatoid factor positive Abdominal pain, RUQ (right upper quadrant) from Last 3 Months or Most Recently Relevant to Health Maintenance Results * HEPATITIS SCREEN ACUTE (05/27/2021 3:47 PM CDT) Hepatitis A Virus Antibody IgM Non Reactive Non Reactive [facility] ACCOUNT BILL Hepatitis B Virus Surface Antigen Non Reactive Non Reactive [facility] ACCOUNT BILL Hepatitis B Core Virus Antibody IgM Non Reactive Non Reactive [facility] ACCOUNT BILL Hepatitis C Antibody Non Reactive Non Reactive [facility] ACCOUNT BILL Comment: Non Reactive - Antibodies to Hepatitis C virus (HCV) were no t detected, result does not exclude early acute HCV infection. Blood BLOOD SPECIMEN / Unknown 05/27/2021 3:47 PM CDT 05/27/2021 Narrative Resulting Agency Comment Lab Testing performed at: [address] [id number] Clark Farley MD LAB - CHEMISTRY OR DERABLES [facility] ACCOUNT BILL [address] [place] [address] from Last 3 Months or Most Recently Relevant to Health Maintenance Care Teams Field Crop Harvest Contractor Relationship Specialty Start Date End Date Arun Khan MD [address] [place] [address] PCP - General 07/13/22
--- OUTSIDE RECORDS SUMMARY | 2024-10-17 12:28 | XMS_ITS | Patient Health Summary ---
Author Organization [facility] Address [address] [place] [address] Care Team Providers Care Application Technical Designer Name Role Phone Arun Khan MD Primary Care Provider [phone] Note from [facility],non-owned Affiliates and Associated Physician Practices is amultiple site organization consisting of ambulatory clinics and hospital sitesin [place], [place], [place] and [place]. This disclosure is being madepursuant to the Care Everywhere program and may not contain all information available regarding this patient. Last updated 18.[facility] Allergies * Contrast-Iodinated Agents For Ct/Other * Meperidine(GI Discomfort) * Oseltamivir(Seizures) -High Criticality * Tamiflu(Seizures) -High Criticality Medications * Be aware that medications may not be up to date on this document. Alwaysverify current medications with the patient. * BuPROPion HCl (WELLBUTRIN PO) Take 150 mg by mouth once daily * estradiol (ESTRACE) 1 MG tablet Take 1 mg by mouth once daily * Multiple Vitamin (MULTI-VITAMIN DAILY PO) * diazePAM (Valium) 5 MG tablet(Started 07/18/2022) Take 1 (one) tablet by mouth once daily Active Problems No known active problems Social [...] Comments Blood Pressure 131/87 07/18/2022 8:47 AM OIL BOILER Pulse 111 07/18/2022 8:47 AM OIL BOILER Temperature 36.1 C (97 F) 09/14/2021 10:59 AM OIL BOILER Respiratory Rate 16 09/14/2021 10:59 AM OIL BOILER Oxygen Saturation 98% 09/14/2021 10:59 AM OIL BOILER Inhaled Oxygen Concentration - - Weight 102.5 kg (226 lb) 07/18/2022 8:47 AM OIL BOILER Height 165.1 cm (5' 5 ) 07/18/2022 8:47 AM OIL BOILER Body Mass Index 37.61 07/18/2022 8:47 AM OIL BOILER Procedures * AUDIOLOGY/TYMPANOMETRY ORDER(Performed 07/18/2022) * HEPATITIS SCREEN ACUTE(Performed 05/27/2021) Performed for Rheumatoid factor positive, Abdominal pain, RUQ (right upper quadrant) * LIPASE BLOOD(Performed 05/27/2021) Performed for Rheumatoid factor positive, Abdominal pain, RUQ (right upper quadrant) * ANCA VASCULITIS PANEL(Performed 05/27/2021) Performed for Rheumatoid factor positive, Abdominal pain, RUQ (right upper quadrant) * NICK PANEL COMPREHENSIVE(Performed 05/27/2021) Performed for Rheumatoid factor positive, Abdominal pain, RUQ (right upper quadrant) * COMPLEMENT C3 C4 PANEL(Performed 05/27/2021) Performed for Rheumatoid factor positive, Abdominal pain, RUQ (right upper quadrant) * NICK BLOOD SCREEN W/REFLEX TITER(Performed 05/27/2021) Performed for Rheumatoid factor positive, Abdominal pain, RUQ (right upper quadrant) * ANGIOTENSIN CONVERTING ENZYME BLOOD(Performed 05/27/2021) Performed for Rheumatoid factor positive, Abdominal pain, RUQ (right upper quadrant) * C-REACTIVE PROTEIN(Performed 05/27/2021) Performed for Rheumatoid factor positive, Abdominal pain, RUQ (right upper quadrant) * ERYTHROCYTE SEDIMENTATION RATE(Performed 05/27/2021) Performed for Rheumatoid factor positive, Abdominal pain, RUQ (right upper quadrant) * CYCLIC CITRUL PEPTIDE ANTIBODY IGG/IGA (CCP)(Performed 05/27/2021) Performed for Rheumatoid factor positive, Abdominal pain, RUQ (right upper quadrant) * RHEUMATOID FACTOR BLOOD QUANTITATIVE(Performed 05/27/2021) Performed for Rheumatoid factor positive, Abdominal pain, RUQ (right upper quadrant) * STREP A SCREEN - POINT OF CARE (AMB) STL(Performed 12/25/2017) Performed for Nasopharyngitis acute * INFLUENZA A+B - POINT OF CARE (AMB)(Performed 10/31/2017) Performed for Influenza B * STREP A SCREEN - POINT OF CARE (AMB) STL(Performed 10/31/2017) Performed for Influenza B * CULTURE STREP GROUP A(Performed 08/04/2017) Performed for Acute pharyngitis, unspecified etiology, Lymphadenopathy, submandibular * STREP A SCREEN - POINT OF CARE (AMB) STL(Performed 08/04/2017) Performed for Acute pharyngitis, unspecified etiology, Lymphadenopathy, submandibular * STREP A SCREEN - POINT OF CARE (AMB) STL(Performed 04/21/2017) Performed for Pharyngitis, streptococcal, acute Results * AUDIOLOGY/TYMPANOMETRY ORDER (07/18/2022 8:22 AM OIL BOILER) Narrative Bernardo Cortez, PhD - 07/18/2022 8:43 AM OIL BOILER Delmy Prieto is a 46 year old female was seen for an assessment of their hearing. The patient reports no noted difficulties. There is a report of dizziness (lightheaded when she turns her head and gets up in the morning- sitting to standing position). There is a history of high blood pressure and seizures. There is not a report of tinnitus. There is a report of otalgia. There is not a report of noise exposure. There is a history of hearing loss in the family. There is not a history of previous ear surgery. Results: Puretone air/bone conduction testing revealed a mild rising to normal conductive hearing loss in the right ear and normal hearing in the left ear. Speech Pcts Thresholds is in good agreement with pure tone average (see speech audiometry for details). Findings were reviewed and discussed with Delmy Prieto following the hearing evaluation. Plan: 1. The risks and benefits of my recommendations, as well as other treatment options were discussed today. 2. I recommend that the patient follow up with their facility, ENT or PCP PRN. Bernardo Cortez, Ph.D., [place] [employer] Teacher Director, Division of Audiology Department of Otolaryngology- Head & Neck Surgery [facility] [employer] [facility] Bernardo Cortez PhD AUDIOLOGY SERVICES O RDERABLES * CYCLIC CITRUL PEPTIDE ANTIBODY IGG/IGA (CCP) (05/27/2021 3:47 PM CDT) CCP Antibodies IgG/IgA 5 0 - 19 units [facility] ACCOUNT BILL Comment: Negative <20 Weak positive 20 - 39 Moderate positive 40 - 59 Strong positive >59 Blood BLOOD SPECIMEN / Unknown 05/27/2021 3:47 PM CDT 05/27/2021 Narrative Resulting Agency Comment Lab Testing performed at: [facility] [address] [id number] Clark Farley MD LAB - SEROLOGY ORD ERABLES [facility] ACCOUNT BILL [address] [place] [address] * NICK PANEL COMPREHENSIVE (05/27/2021 3:47 PM CDT) Anti-dsDNA Quantitative <1 0 - 9 IU/mL [facility] ACCOUNT BILL Comment: Negative <5 Equivocal 5 - 9 Positive >9 [employer] Antibody <0.2 0.0 - 0.9 AI [facility] ACCOUNT BILL Alvarado (GHULAM) Antibody <0.2 0.0 - 0.9 AI [facility] ACCOUNT BILL Antiscleroderma-70 Antibody 0.2 0.0 - 0.9 AI [facility] ACCOUNT BILL Sjogren's Antibodies (SSA) <0.2 0.0 - 0.9 AI [facility] ACCOUNT BILL Sjogren's Antibodies (SSB) <0.2 0.0 - 0.9 AI [facility] ACCOUNT BILL Antichromatin Antibodies <0.2 0.0 - 0.9 AI [facility] ACCOUNT BILL Bronwyn-1 Antibody <0.2 0.0 - 0.9 AI [facility] ACCOUNT BILL Centromere B Antibody <0.2 0.0 - 0.9 AI [facility] ACCOUNT BILL See Below [facility] ACCOUNT BILL Comment: Autoantibody Disease Association Condition Frequency --------- Antinuclear Antibody, SLE, mixed connective Direct (NICK-D) tissue diseases --------- dsDNA SLE 40 - 60% --------- Chromatin Drug induced SLE 90% SLE 48 - 97% --------- SSA (Ro) SLE 25 - 35% Sjogren's Syndrome 40 - 70% Lupus 100% --------- SSB (La) SLE 10% Sjogren's Syndrome 30% --------- Sm (anti-Alvarado) SLE 15 - 30% --------- [employer] Mixed Connective Tissue Disease 95% (U1 nRNP, SLE 30 - 50% anti-ribonucleoprotein) Polymyositis and/or Dermatomyositis 20% --------- Scl-70 (antiDNA Scleroderma (diffuse) 20 - 35% topoisomerase) Crest 13% --------- Bronwyn-1 Polymyositis and/or Dermatomyositis 20 - 40% --------- Centromere B Scleroderma - Crest variant 80% Blood BLOOD SPECIMEN / Unknown 05/27/2021 3:47 PM CDT 05/27/2021 Narrative Resulting Agency Comment [facility] [address] [facility] [id number] Clark Farley MD LAB - SEROLOGY ORD ERABLES [facility] ACCOUNT BILL [address] [place] [address] * (ABNORMAL) ANCA VASCULITIS PANEL (05/27/2021 3:47 PM CDT) Anti-myeloperoxid ase (MPO) Antibody <9.0 0.0 - 9.0 U/mL [facility] ACCOUNT BILL Anti-proteinase 3 (GA-3) Abs 12.5(H) 0.0 - 3.5 U/mL [facility] ACCOUNT BILL Cytoplasmic (C-ANCA) <1:20 Neg:<1:20 titer [facility] ACCOUNT BILL p-ANCA Titer <1:20 Neg:<1:20 titer [facility] ACCOUNT BILL Comment: The presence of positive fluorescence exhibiting P-ANCA or C-ANCA patterns alone is not specific for the diagnosis of Shalonda's Granulomatosis (WG) or microscopic polyangiitis. Decisions about treatment should not be based solely on ANCA IFA results. The International ANCA Group Consensus recommends follow up testing of positive sera with both GA-3 and MPO-ANCA enzyme immunoassays. As many as 5% serum samples are positive only by EIA. Ref. AM J Clin Pathol 1999;111:507-513. Atypical p-ANCA Titer <1:20 Neg:<1:20 titer [facility] ACCOUNT BILL Comment: The atypical pANCA pattern has been observed in a significant percentage of patients with ulcerative colitis, primary sclerosing cholangitis and autoimmune hepatitis. Blood BLOOD SPECIMEN / Unknown 05/27/2021 3:47 PM CDT 05/27/2021 Narrative Resulting Agency Comment Lab Testing performed at: [facility] [id number] Clark Farley MD LAB - CHEMISTRY OR DERABLES Performing Organization Address City/[facility]/ZIP Co de Phone Number [facility] ACCOUNT BILL [address] [place] [address] * (ABNORMAL) RHEUMATOID FACTOR BLOOD QUANTITATIVE (05/27/2021 3:47 PM CDT) Rheumatoid Factor 137(H) <30 IU/mL [facility] ACCOUNT BILL Blood BLOOD SPECIMEN / Unknown 05/27/2021 3:47 PM CDT 05/27/2021 Narrative Resulting Agency Comment Lab Testing performed at: [facility] [address] [facility] [id number] Clark Farley MD LAB - CHEMISTRY OR DERABLES [facility] ACCOUNT BILL [address] [place] [address] * (ABNORMAL) C-REACTIVE PROTEIN (05/27/2021 3:47 PM CDT) Pathologist [facility] C-Reactive Protein 0.80(H) <=0.50 mg/dL [facility] ACCOUNT BILL Blood BLOOD SPECIMEN / Unknown 05/27/2021 3:47 PM CDT 05/27/2021 Narrative Resulting Agency Comment Lab Testing performed at: [facility] [address] [facility] [id number] Clark Farley MD LAB - CHEMISTRY OR DERABLES [facility] ACCOUNT BILL [address] [place] [address] * NICK BLOOD SCREEN W/REFLEX TITER (05/27/2021 3:47 PM CDT) [facility] NICK Negative Negative [facility] ACCOUNT BILL Comment: Methodology: Indirect Immunofluorescence Assay (IFA) utili Hep-2-Gamma cells. Blood BLOOD SPECIMEN / Unknown 05/27/2021 3:47 PM CDT 05/27/2021 Narrative Resulting Agency Comment Lab Testing performed at: [facility] [address] [facility] [id number] Clark Farley MD LAB - CHEMISTRY OR DERABLES Performing Organization Address City/[facility]/ZIP Co de Phone Number [facility] ACCOUNT BILL [address] [place] [address] * ANGIOTENSIN CONVERTING ENZYME BLOOD (05/27/2021 3:47 PM CDT) Pathologist [facility] Angiotensin-Con verting Enzyme 23 14 - 82 U/L [facility] ACCOUNT BILL Blood BLOOD SPECIMEN / Unknown 05/27/2021 3:47 PM CDT 05/27/2021 Narrative Resulting Agency Comment Lab Testing performed at: [facility] [place] [address] [facility] [id number] Clark Farley MD LAB - CHEMISTRY OR DERABLES [facility] ACCOUNT BILL [address] [place] [address] * ERYTHROCYTE SEDIMENTATION RATE (05/27/2021 3:47 PM CDT) Erythrocyte Sedimentation Rate Westergren 20 0 - 20 MM/HR [facility] ACCOUNT BILL Blood BLOOD SPECIMEN / Unknown 05/27/2021 3:47 PM CDT 05/27/2021 Narrative Resulting Agency Comment Lab Testing performed at: [facility] [address] [facility] [id number] Clark Farley MD LAB - HEMATOLOGY O RDERABLES [facility] ACCOUNT BILL [address] [place] [address] * LIPASE BLOOD (05/27/2021 3:47 PM CDT) Pathologist [facility] Lipase 22 8 - 78 U/L [facility] A CCOUNT BILL Blood BLOOD SPECIMEN / Unknown 05/27/2021 3:47 PM CDT 05/27/2021 Narrative Resulting Agency Comment Lab Testing performed at: [facility] [address] [facility] [id number] Clark Farley MD LAB - CHEMISTRY OR DERABLES [facility] ACCOUNT BILL [address] [place] [address] * (ABNORMAL) COMPLEMENT C3 C4 PANEL (05/27/2021 3:47 PM CDT) Complement C3 172(H) 82 - 167 mg/dL [facility] ACCOUNT BILL Complement C4 30 12 - 38 mg/dL [facility] ACCOUNT BILL Blood BLOOD SPECIMEN / Unknown 05/27/2021 3:47 PM CDT 05/27/2021 Narrative Resulting Agency Comment Lab Testing performed at: [facility] [place] [address] [facility] [id number] Clark Farley MD LAB - CHEMISTRY OR DERABLES [facility] ACCOUNT BILL [address] [place] [address] * HEPATITIS SCREEN ACUTE (05/27/2021 3:47 PM CDT) Pathologist [facility] Hepatitis A Virus Antibody IgM Non Reactive [...] Resulting Agency Comment Lab Testing performed at: [address] [id number] Clark Farley MD LAB - CHEMISTRY OR DERABLES [facility] ACCOUNT BILL [address] [place] [address] * STREP A SCREEN (12/25/2017) Only the most recent of4 resultswithin the time period is included. Pathologist [facility] Strep A Rapid POCT Negative Negative Strep A Internal Control Present Lot # [id number] Expiration Date 05/25/19 Throat ENTIRE THROAT (SURFACE REGION OF NECK) / Unknown 12/25/2017 Sari Fontaine DOLLY DRIVER-BILLING SPECIALIST LAB - POINT OF CA RE ORDERABLES * (ABNORMAL) INFLUENZA A+B - POINT OF CARE (AMB) (10/31/2017) Pathologist [facility] Influenza A Antigen Rapid Negative Negative Influenza B Antigen Rapid Positive(A) Negative Influenza Internal Control present NEGATIVE - POSITIVE Influenza Lot Number [id number] Influenza Expiration Date 06/26/2019 Other NASOPHARYNGEAL SWAB / Unknown 10/31/2017 Laura Torres DOLLY DRIVER-BILLING SPECIALIST LAB - POINT OF CARE ORDERABLES * CULTURE STREP GROUP A (08/04/2017 8:16 PM OIL BOILER) Culture Strep A [facility] Comment: STREPTOCOCCUS, GROUP A CULTURE MICRO NUMBER: [id number] TEST STATUS: FINAL SPECIMEN SOURCE: THROAT SPECIMEN QUALITY: ADEQUATE RESULT: No group A Streptococcus isolated Test Performed at: [facility] [address] [place] [address] OC INGRAM MD Microbiology ENTIRE THROAT (SURFACE REGION OF NECK) / Unknown 08/04/2017 8:16 PM OIL BOILER 08/05/2017 7:10 PM OIL BOILER Laura Torres DOLLY DRIVER-BILLING SPECIALIST LAB - MICROBIO LOGY ORDERABLES [facility] [place] [address] [place] [address] Care Teams Application Technical Designer Relationship Specialty Start Date End Date Arun Khan MD [address] [facility] [address] [place] [address] PCP - General 07/13/22
--- OUTSIDE RECORDS SUMMARY | 2024-10-17 12:28 | XMS_ITS | Clinical Summary ---
Author Organization [facility] Address [address] [place] [address] Care Team Providers Care Overhead Crane Technician Name Role Phone Arun Khan MD Primary Care Provider [phone] Source Comments [facility],non-owned Affiliates and Associated Physician Practices is amultiple site organization consisting of ambulatory clinics and hospital sitesin [place], [place], [place] and [place]. This disclosure is being madepursuant to the Care Everywhere program and may not contain all information available regarding this patient. Last updated 18.[facility] Allergies Active Allergy Reactions Criticality Noted [...] Comments Blood Pressure 131/87 07/18/2022 8:47 AM ELECTROMEDICAL EQUIPMENT REPAIRER Pulse 111 07/18/2022 8:47 AM ELECTROMEDICAL EQUIPMENT REPAIRER Temperature 36.1 C (97 F) 09/14/2021 10:59 AM ELECTROMEDICAL EQUIPMENT REPAIRER Respiratory Rate 16 09/14/2021 10:59 AM ELECTROMEDICAL EQUIPMENT REPAIRER Oxygen Saturation 98% 09/14/2021 10:59 AM ELECTROMEDICAL EQUIPMENT REPAIRER Inhaled Oxygen Concentration - - Weight 102.5 kg (226 lb) 07/18/2022 8:47 AM ELECTROMEDICAL EQUIPMENT REPAIRER Height 165.1 cm (5' 5 ) 07/18/2022 8:47 AM ELECTROMEDICAL EQUIPMENT REPAIRER Body Mass Index 37.61 07/18/2022 8:47 AM ELECTROMEDICAL EQUIPMENT REPAIRER Plan of Treatment Health Maintenance Due Date Last Done Comments COLOGUARD (AGES 45-75) - COL ON CA SCREENING 1973 COLON MONITORING 1973 COLONOSCOPY - COLON CA SCREENING 1973 CT COLONOGRAPHY - COLON CA SCREENING 1973 Colorectal Cancer Screening 1973 FIT - COLON CA SCREENING 1973 FLEX SIG - COLON CA SCREENING 1973 LIPID TESTING 1973 MAMMOGRAM 1973 PAP SMEAR 1973 HIV SCREENING 1988 DTAP/TDAP/TD VACCINES (1 - Tdap) 1992 HEPATITIS B VACCINE (1 of 3 - 19+ 3-dose series) 1992 SCREENING FOR DIABETES 05/27/2021 PNEUMOCOCCAL VACCINE 50+ (1 of 1 - PCV) 2023 ZOSTER VACCINE (1 of 2) 2023 COVID-19 VACCINE (3 - 2023-2 5 season) 2024 02/02/2021, 01/03/2021 INFLUENZA VACCINE (#1) 2024 DEPRESSION SCREENING 09/04/2024 HEPATITIS C SCREENING Completed 05/27/2021 HIB VACCINE Aged Out No longer eligi ble based on patient's age to complete this topic HPV VACCINE Aged Out No longer eligi ble based on patient's age to complete this topic MENINGOCOCCAL (Group B) VACCINE Aged Out No longer eligible b ased on patient's age to complete this topic MENINGOCOCCAL VACCINE Aged Out No maurilio deonte eligible based on patient's age to complete this topic PNEUMOCOCCAL VACCINE Aged Out No long er eligible based on patient's age to complete this topic Procedures Procedure Name Priority Date/Time Associated Diagnosis [...] Resulting Agency Comment Lab Testing performed at: [facility] [place] [address] [facility] [id number] Clark Farley MD LAB - CHEMISTRY OR DERABLES [facility] ACCOUNT BILL [address] [place] [address] from Last 3 Months or Most Recently Relevant to Health Maintenance Care Teams Overhead Crane Technician Relationship Specialty Start Date End Date Arun Khan MD [address] [facility] [address] [place] [address] PCP - General 07/13/22
--- OUTSIDE RECORDS SUMMARY | 2024-10-17 12:28 | XMS_ITS | Clinical Summary ---
Author Organization [facility] Address On license of [facility] [place] [address] Care Team Providers Care Windows Server Support Technician Name Role Phone Arun Khan MD Primary Care Provider [phone] Allergies Active Allergy Reactions Criticality Noted Date [...] fatigue 06/18/2020 Iron deficiency 06/18/2020 Insomnia 06/18/2020 Vxntj-Jmlarbrto-Xdavz pattern 06/18/2020 Sinusitis 06/18/2020 Pulmonary embolism 06/18/2020 Postsurgical menopause 06/18/2020 Abnormal findings on diagnostic imaging of breas t 09/26/2019 Breast mass 09/26/2019 Surgical History Surgery Date Site/Laterality Comments TONSILLECTOMY 09/04/1993 - 09/03/1994 N/A SECTION 09/04/1993 - 09/03/1994 SECTION 09/04/1996 - 09/03/1997 SECTION 09/04/1999 - 09/03/2000 HYSTERECTOMY 09/04/2005 - 09/03/2006 HYSTERECTOMY 09/04/2006 - 09/03/2007 GALLBLADDER SURGERY 09/04/2010 - 09/03/2011 CHOLECYSTECTOMY BREAST SURGERY APPENDECTOMY CARDIAC ELECTROPHYSIOLOGY ST UDY AND ABLATION Medical History Medical History Date Comments Overweight Arthritis Heart disease Blurred vision Frequent headaches Nausea Depression Seizures (HCC) Meningioma (HCC) Family History Medical History Relation Name Comments Cancer Brother Cancer Maternal Grandfather Breast cancer Maternal Grandmother Cancer Maternal Grandmother Diabetes Mother Hypertension Mother Cancer Paternal Grandfather Relation Name Status Comments Brother Maternal Grandfather Maternal Grandmother Mother Paternal Grandfather Social History Tobacco Use Types Packs/Day Years [...] on file Legal Sex Female 10:03 AM PROCESS STRIPPER Gender Identity Not on file Sexual Orientation Not on file Obstetrics History Last Filed Vital Signs Vital Sign Reading Time Taken Comments Blood Pressure 100/60 05/19/2022 1:36 PM CDT Pulse 102 07/29/2021 2:56 PM PROCESS STRIPPER Temperature 36.4 C (97.5 F) 07/29/2021 2:56 PM PROCESS STRIPPER Respiratory Rate 19 07/29/2021 4:05 PM PROCESS STRIPPER Oxygen Saturation 99% 07/29/2021 4:05 PM PROCESS STRIPPER Inhaled Oxygen Concentration - - Weight 101.7 kg (224 lb 3.2 oz) 05/19/2022 1:36 PM CDT Height 165.1 cm (5' 5 ) 05/19/2022 1:36 PM CDT Body Mass Index 37.31 05/19/2022 1:36 PM CDT Plan of Treatment Health Maintenance Due Date Last Done Comments Breast Cancer Screening-Mammogram 1973 Colon Cancer Screening-Colonoscopy 1973 Depression Screening 1973 Hepatitis C Screening 1973 Pneumococcal vaccine <65 (1 of 2 - PCV) 1979 DTaP/Tdap/Td Vaccine (1 - Tdap) 1984 Hepatitis B Screening 1991 Regular Well Visit/Exam 18-64 1991 Zoster Vaccine (1 of 2) 2023 Influenza Vaccine (#1) 2024 [place] OTHER Advance Directives For more information, please contact: [phone] * Full Code (Latest Code Status on File) Date Activated Date Inactivated Comments 02/03/2021 9:55 AM 02/07/2021 6:01 PM * Full Code Date Activated Date Inactivated Comments 06/22/2020 8:54 PM 06/23/2020 3:16 AM Care Teams Windows Server Support Technician Relationship Specialty Start Date End Date Arun Khan MD PCP - General Emergency Medicine 04/08/21
== END 2024-10-17 12:17 | disposition home or self-care (01) ==
LOC: ANHIMG 12:26
PROVIDERS: PCP Obstetrics & Gynecology; Visit Provider Obstetrics & Gynecology
DX: S49.92XS Unspecified injury of left shoulder and upper arm, sequela (principal); X58.XXXS Exposure to other specified factors, sequela
CPT/HCPCS: 73030

== ENCOUNTER 2024-12-19 12:54 | Emergency (ER) | payer BC, SELFPAY ==
[2024-12-19 13:12] VITALS: BP 126/81; PULSE 84; RESP 16; TEMP 36.6; O2SAT 100
[2024-12-19 13:22] LABS: EDSTREPNEGPOS1 Negative (Negative)
--- NOTE | 2024-12-19 13:25 | ED.URI ---
HPI - URI/Sore Throat General Chief Complaint: Upper Respiratory Infection Stated Complaint: Strep Symptoms Time Seen by Provider: 12/19/24 13:20 Source: patient and RN notes reviewed Mode of arrival: ambulatory Limitations: no limitations History of Present Illness HPI Narrative: Patient presents today with a 2 day history of sore throat, headache, fatigue. She started with some diarrhea today as well. Reports granddaughter has recently tested positive for strep throat. Denies shortness of breath, fever, difficulty swallowing. She has taken some DayQuil with some mild relief and currently rates her pain 5/10. Related Data Allergies Allergy/AdvReac Type Severity Reaction Status Date / Time meperidine Allergy Severe Vomiting Verified 06/05/24 14:34 ioversol Allergy Intermediate Hives Verified 06/05/24 14:34 iodixanol Allergy Mild itchey Verified 06/05/24 14:34 throat, hives, shaking, sneezing Contrast Media Allergy Intermediate Hives / Uncoded 06/05/24 14:34 Red Face Review of Systems Review of Systems: CONSTITUTIONAL: Denies body aches, fever, chills, or sweats.+ fatigue EYES: Denies visual changes, redness, or discharge. ENT: Denies rhinorrhea, congestion, or otalgia.+ sore throat CARDIOVASCULAR: Denies chest pain, palpitations, or edema. RESPIRATORY: Denies cough or dyspnea. GASTROINTESTINAL: Denies abdominal pain, nausea, vomiting. + diarrhea GENITOURINARY: Denies dysuria or hematuria. SKIN: Denies rash, itching, or wounds. MUSCULOSKELETAL: Denies back pain, joint pain, or myalgia. NEUROLOGIC: Denies numbness, tingling, or weakness.+ headache PSYCH: Denies depression or anxiety. [facility] Past Medical History Medical History Fibrous breast lumps Screening for breast cancer Hyperlipidemia Encounter for gynecological examination Depression Surgical History Surgical History History of tonsillectomy Hx of appendectomy History of delivery 3 H/O: hysterectomy Family History Family History Grandparent Family history of malignant neoplasm of breast Mother Diabetes mellitus Hypertension Patient's mother is in good health Father Patient's father is in good health Other Cerebrovascular accident Family history of alcoholism Family history of arthritis Family history of atrial fibrillation Family history of cardiovascular disease Family history of chronic obstructive pulmonary disease Family history of hepatitis Family history of lung cancer Family history of malignant neoplasm of male breast Family history of osteoporosis Social History Social History Smoking status: Never smoker Alcohol intake: current Substance use: never Living arrangements: other Additional living arrangements comments: Occupation/Education: occupation Gender identity (if verbalized by the patient): Female Sexual Orientation (if Verbalized by the Patient): Straight or Heterosexual Comments At time of signature, I have reviewed and agree with nursing past medical, surgical, social and family history unless otherwise noted. Please see nursing chart for further information. There is no relevant family history pertinent to the presenting complaint Exam Narrative: GENERAL: Well-appearing, well-nourished, and in no acute distress. HEAD: Normocephalic, atraumatic. EYES: EOMI. No redness or drainage. Conjunctivae normal. ENT: Mucous membranes pink and moist. Nares clear. No rhinorrhea. TMs normal bilaterally. Throat mildly erythematous without edema or exudate. Uvula midline. NECK: Normal AROM. Supple. No lymphadenopathy. CHEST: No respiratory distress. Clear to auscultation. HEART: Regular rate and rhythm. No murmur appreciated. EXTREMITIES: Normal range of motion. No edema. SKIN: Warm, dry, no rash. Capillary refill normal. Normal skin turgor. NEURO: No focal deficits. Alert and oriented x3. Gait steady. PSYCH: Normal affect. No signs of depression or anxiety. Course Course Level of Care: Express Care Visit Vital Signs Vital signs: Vital Signs Temperature 97.8 F 12/19/24 13:12 Pulse Rate 84 12/19/24 13:12 Respiratory Rate 16 12/19/24 13:12 Blood Pressure 126/81 12/19/24 13:12 Pulse Oximetry 100 12/19/24 13:12 Temperature 97.8 F 12/19/24 13:12 Pulse Rate 84 12/19/24 13:12 Respiratory Rate 16 12/19/24 13:12 Blood Pressure 126/81 12/19/24 13:12 Pulse Oximetry 100 12/19/24 13:12 Reviewed MDM - URI/Sore Throat MDM Narrative Medical decision making narrative: Rapid strep negative. Culture pending. Symptoms likely viral in etiology. Discussed bkra-bii-xzibcgd medication use and duration of illness. No prescription medications indicated at this time. Anticipatory guidance given. Differential Diagnosis Differential diagnosis: Likely upper respiratory infection, sinusitis, viral infection, pharyngitis and other (Strep throat) Lab Data Attestation: I reviewed the patient's lab results. Labs: Lab Results 12/19/24 Range/Units 13:20 POC Grp A Strep Screen Negative (Negative) Critical Care Time Critical Care Time Critical Care Time: No Discharge Plan Discharge Clinical Impression: Upper respiratory infection Qualifiers: URI type: unspecified URI Qualified Code(s): J06.9 - Acute upper respiratory infection, unspecified Patient Disposition: Home Condition: Stable Instructions: Upper Respiratory Infection (DC) Additional Instructions: Your rapid strep swab was negative today at [facility]. You will be notified in a few days if the culture comes back positive for strep, and appropriate antibiotics will be called in for you at that time. Your symptoms are likely due to a viral illness, which is not treated with antibiotics. Viral symptoms can be present for up to 7-10 days. Take Tylenol or ibuprofen for fever or pain. Rest and stay hydrated. Follow up with your PCP in 7 days if symptoms are not improving. Go to the ER immediately if you any difficulty breathing or swallowing. Your blood pressure was elevated above 120/80 today at Urgent Care. This puts you above the threshold for follow up. Please schedule a followup visit with your personal physician as soon as possible, for further evaluation and treatment. Even blood pressure exceeding 120/80 may indicate pre-hypertension. Patient Language: Belgian Prescriptions: No Action bupropion HCl [Wellbutrin SR] 150 mg tablet sustained-release 12 hr 150 mg PO DAILY Qty: 30 6RF estradiol 1 mg tablet 1 mg PO DAILY Qty: 30 3RF Follow-up/Referrals: PHYSICIAN,DOCUMENT MANAGER [Primary Care Provider] - Time of Disposition: 13:28
== END 2024-12-19 13:34 | disposition home or self-care (01) ==
PROVIDERS: Emergency Provider Nurse Practitioner
DX: J06.9 Acute upper respiratory infection, unspecified (principal); E78.5 Hyperlipidemia, unspecified
CPT/HCPCS: 87081; 87880; 99213; G0463

== ENCOUNTER 2024-12-31 07:57 | Outpatient (CLI) | payer BC, SELFPAY ==
--- NOTE | ~2024-12-31 | MM_ITS ---
EXAMINATION: MM screening [facility] BI w dimas HISTORY: Screening mammogram TECHNIQUE: Craniocaudal and mediolateral oblique 3-D tomosynthesis images were obtained and synthetic 2-D images were generated. CAD analysis was submitted and interpreted. COMPARISON: 09/19/2023, 11/03/2022, 09/23/2021 BREAST PARENCHYMAL COMPOSITION:Not Dense. There are scattered areas of fibroglandular density. FINDINGS: No suspicious mass, calcification, or architectural distortion are identified in either qing ast to suggest malignancy. There has been no suspicious interval change. IMPRESSION: No mammographic evidence of malignancy. Recommend routine screening mammography in one year. BI-RADS Category 1: Negative Reviewed, dictated and finalized at location .
--- OUTSIDE RECORDS SUMMARY | 2024-12-31 08:04 | XMS_ITS | Referral Summary ---
Author Organization [facility] Address [facility] [place] [address] Care Team Providers Care Composer Teaching Artist Name Role Phone Arun Khan MD Primary Care Provider [phone] Allergies Active Allergy Reactions Criticality Noted Date [...] fatigue 06/18/2020 Iron deficiency 06/18/2020 Insomnia 06/18/2020 Bdvfp-Zeltvfwtr-Jhaky pattern 06/18/2020 Sinusitis 06/18/2020 Pulmonary embolism 06/18/2020 [...] on file Legal Sex Female 10:03 AM STOPPER SETTER Gender Identity Not on file Sexual Orientation Not on file Last Filed Vital Signs Vital Sign Reading Time Taken Comments Blood Pressure 100/60 05/19/2022 1:36 PM CDT Pulse 102 07/29/2021 2:56 PM STOPPER SETTER Temperature 36.4 C (97.5 F) 07/29/2021 2:56 PM STOPPER SETTER Respiratory Rate 19 07/29/2021 4:05 PM STOPPER SETTER Oxygen Saturation 99% 07/29/2021 4:05 PM STOPPER SETTER Inhaled Oxygen Concentration - - Weight 101.7 kg (224 lb 3.2 oz) 05/19/2022 1:36 PM CDT Height 165.1 cm (5' 5 ) 05/19/2022 1:36 PM CDT Body Mass Index 37.31 05/19/2022 1:36 PM CDT Plan of Treatment Not on file Insurance [place] OTHER Advance Directives For more information, please contact: [phone] * Full Code (Latest Code Status on File) Date Activated Date Inactivated Comments 02/03/2021 9:55 AM 02/07/2021 6:01 PM * Full Code Date Activated Date Inactivated Comments 06/22/2020 8:54 PM 06/23/2020 3:16 AM Care Teams Composer Teaching Artist Relationship Specialty Start Date End Date Arun Khan MD PCP - General Emergency Medicine 04/08/21
--- OUTSIDE RECORDS SUMMARY | 2024-12-31 08:04 | XMS_ITS | Clinical Summary ---
Author Organization [facility] Address [address] [place] [address] Care Team Providers Care Straightener And Aligner Name Role Phone Arun Khan MD Primary Care Provider [phone] Allergies Active Allergy Reactions Criticality Noted Date Comments Iodinated Contrast Media Hives High 12/20/2016 Meperidine Nausea and Vomiting Low 12/20/2016 Medications estradiol (ESTRACE) 2 mg tablet TK 1 T PO QD 4 01/03/2019 Active buPROPion (WELLBUTRIN) 100 mg tablet Take 100 mg by mouth 2 times daily. Active cefdinir (OMNICEF) 300 mg capsule 04/06/2022 Active simvastatin (ZOCOR) 20 mg tablet 04/06/2022 Active Active Problems Problem Noted Date Diagnosed Date Leukocytosis (leucocytosis) 07/06/2021 Family History Medical History Relation Name Comments Cancer Brother 1 Healthy Daughter 1 Healthy Daughter 2 Heart Disease Father Healthy Son Relation Name Status Comments Brother 1 Alive Brother 2 Alive Daughter 1 Alive Daughter 2 Alive Father Alive Mother Alive Son Alive Social History Tobacco Use Types Packs/Day Years Used Date Smoking Tobacco: Never Smokeless Tobacco: Never Alcohol Use Standard Drinks/Week Comments Yes 0 (1 standard drink = 0.6 oz pur e alcohol) Comments No Sex and Gender Information Value Date Recorded Sex Assigned at Not on file Legal Sex Female 2:08 PM CDT Gender Identity Not on file Sexual Orientation Not on file Last Filed Vital Signs Vital Sign Reading Time Taken Comments Blood Pressure 133/96 05/24/2022 3:32 PM CDT Pulse 88 05/24/2022 3:32 PM CDT Temperature 37.2 C (99 F) 05/24/2022 3:32 PM CDT Respiratory Rate - - Oxygen Saturation 98% 05/24/2022 3:32 PM CDT Inhaled Oxygen Concentration - - Weight 99.8 kg (220 lb) 05/24/2022 3:32 PM CDT Height 165.1 cm (5' 5 ) 05/24/2022 3:32 PM CDT Body Mass Index 36.61 05/24/2022 3:32 PM CDT Plan of Treatment Health Maintenance Due Date Last Done Comments DTAP/TDAP/TD VACCINES (1 - Tdap) 1992 HEPATITIS B VACCINES (1 of 3 - 19+ 3-dose series) 1992 COLORECTAL SCREENING 2018 Colorectal Cancer Screening 2018 FIT-DNA Q 3 years 2018 FIT/FOBT Q 1 year 2018 Flex Sig/CT Colonography Q 5 years 2018 BREAST CANCER SCREENING 09/25/2020 09/25/2019, 08/10 ZOSTER VACCINE (1 of 2) 2023 INFLUENZA VACCINE (#1) 2024 Procedures Procedure Name Priority Date/Time Associated Diagnosis Comments MAMMO 3D UGO DIAGNOSTIC CARMELINA AT W OR WO CAD Routine 08/10/2018 from Last 3 Months or Most Recently Relevant to Health Maintenance Results * MAMMO DIAG BILAT 3D UGO W OR WO CAD (08/10/2018) Anatomical Region Laterality Modality Breast Bilateral Mammography us Abstract Provider MAMMO ORDERABLES Final Result from Last 3 Months or Most Recently Relevant to Health Maintenance Care Teams Straightener And Aligner Relationship Specialty Start Date End Date Arun Khan MD [address] [place] [id number] PCP - General Emergency Medicine 07/06/21
--- OUTSIDE RECORDS SUMMARY | 2024-12-31 08:04 | XMS_ITS | Clinical Summary ---
Author Organization [facility] Address [facility] [place] [address] Care Team Providers Care Auto Service Instructor Name Role Phone Arun Khan MD Primary Care Provider [phone] Allergies Active Allergy Reactions Criticality Noted Date [...] fatigue 06/18/2020 Iron deficiency 06/18/2020 Insomnia 06/18/2020 Cgsmh-Jwgdgtpck-Wfpar pattern 06/18/2020 Sinusitis 06/18/2020 Pulmonary embolism 06/18/2020 [...] on file Legal Sex Female 10:03 AM READING RECOVERY TEACHER Gender Identity Not on file Sexual Orientation Not on file Obstetrics History Last Filed Vital Signs Vital Sign Reading Time Taken Comments Blood Pressure 100/60 05/19/2022 1:36 PM CDT Pulse 102 07/29/2021 2:56 PM READING RECOVERY TEACHER Temperature 36.4 C (97.5 F) 07/29/2021 2:56 PM READING RECOVERY TEACHER Respiratory Rate 19 07/29/2021 4:05 PM READING RECOVERY TEACHER Oxygen Saturation 99% 07/29/2021 4:05 PM READING RECOVERY TEACHER Inhaled Oxygen Concentration - - Weight 101.7 kg (224 lb 3.2 oz) 05/19/2022 1:36 PM CDT Height 165.1 cm (5' 5 ) 05/19/2022 1:36 PM CDT Body Mass Index 37.31 05/19/2022 1:36 PM CDT Plan of Treatment Health Maintenance Due Date Last Done Comments Breast Cancer Screening-Mammogram 1973 Colon Cancer Screening-Colonoscopy 1973 Depression Screening 1973 Hepatitis C Screening 1973 DTaP/Tdap/Td Vaccine (1 - Tdap) 1984 Hepatitis B Screening 1991 Regular Well Visit/Exam 18-64 1991 Pneumococcal vaccine <65 (1 of 2 - PCV) 1992 Zoster Vaccine (1 of 2) 2023 Influenza Vaccine (#1) 2024 Insurance [place] OTHER Advance Directives For more information, please contact: [phone] * Full Code (Latest Code Status on File) Date Activated Date Inactivated Comments 02/03/2021 9:55 AM 02/07/2021 6:01 PM * Full Code Date Activated Date Inactivated Comments 06/22/2020 8:54 PM 06/23/2020 3:16 AM Care Teams Auto Service Instructor Relationship Specialty Start Date End Date Arun Khan MD PCP - General Emergency Medicine 04/08/21
--- OUTSIDE RECORDS SUMMARY | 2024-12-31 08:04 | XMS_ITS | CONTINUITY OF CARE DOCUMENT ---
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 Delfino Ardon RN CARDIAC ARRHYTHMIA-10/14 ECHO NLEF 65 04/12 ECHO EF 60 active ? Jamshid Ardon RN PALPITATIONS - VENTRICULAR B IGEMINIES-06/12 ABLATION active ? Edie Weber MD Cardiology examination active Valerio Rosado MD ENCOUNTERS Date Type Provider Location Encounter Diag nosis - In-person encounter Office Visit Valerio Rosado MD [facility] Cardiology examination - In-person encounter Office Visit Valerio Rosado MD [facility] - In-person encounter Office Visit Valerio Rosado MD [facility] - In-person encounter Office Visit Valerio Rosado MD [facility] - In-person encounter Office Visit Valerio Rosado MD [facility] In-person encounter Office Visit Valerio Rosado MD [facility] - In-person encounter Office Visit Valerio Rosado MD [facility] - In-person encounter Office Visit Valerio Rosado MD [facility] - In-person encounter Office Visit Valerio Rosado MD [facility] - In-person encounter Office Visit Edie Weber MD [facility] - In-person encounter Office Visit Edie Weber MD [facility] PALPITATIONS - VENTRICULAR BIGEMINIES-06/12 ABLATION - In-person encounter Office Visit Edie Weber MD [facility] - In-person encounter Office Visit Edie Weber MD [facility] - In-person encounter Office Visit Edie Weber MD [facility] CHEST PAIN-04/12 RT STRESS ISCHEMIACARDIAC ARRHYTHMIA-10/14 ECHO NLEF 65 04/12 ECHO EF 60PALPITATIONS - VENTRICULAR BIGEMINIES-06/12 ABLATION VITAL SIGNS Date Observation Value Provider Body Mass Index (Ratio) 28.79 kg/m2 Rashad Rosado MD blood pressure, diastolic 87 mm[Hg] Blanche Allred blood pressure, systolic 122 mm[Hg] Terra kierraishan Allred oxygen saturation, oximetry 98 % Esther Allred pulse rate 84 /min Esther Allred respiratory rate E&M 12 /min Esther Allred weight E&M 173 [lb_av] Esther Allred height E&M 65 [in_i] Esther Allred blood pressure, cuff size regular Blanche izquierdokierraishan Allred pulse rate 88 /min Margi Ventimig ivan [facility] blood pressure, diastolic 78 mm[Hg] Am сергей Ventimiglia [facility] blood pressure, systolic 112 mm[Hg] Kilauea nda Ventimiglia 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 oxygen saturation, oximetry 97 % Margi Ventimiglia 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 respiratory rate E&M 16 /min Margi Ventimiglia 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 height E&M 65 [in_i] Candice Seaman Body Mass Index (Ratio) 38.27 kg/m2 Rashad Rosado MD blood pressure, diastolic 87 mm[Hg] Vida Brock blood pressure, systolic 125 mm[Hg] Radha Brock blood pressure, cuff size regular Vida ParkerPricilla Vinod respiratory rate E&M 16 /min Olievr Brock oxygen saturation, oximetry 97 % Faiza Brock pulse rate 71 /min Faiza dahl weight E&M 230 [lb_av] Faiza dahl height E&M 65 [in_i] Faiza dahl Body Mass Index (Ratio) 38.44 kg/m2 Rashad Rosado MD blood pressure, diastolic 91 mm[Hg] Li nkLogic blood pressure, systolic 131 mm[Hg] Cassie kLogic blood pressure, diastolic 91 mm[Hg] Sa ra Turner blood pressure, systolic 131 mm[Hg] Vahe a Turner oxygen saturation, oximetry 98 % Lucia Turner respiratory rate E&M 20 /min Lucia Si ms pulse rate 89 /min Lucia Turner weight E&M 231 [lb_av] Lucia Turner blood pressure, cuff size regular Sa ra Turner height E&M 65 [in_i] Lucia Turner Body Mass Index (Ratio) 34.44 kg/m2 Rashad Rosado MD pulse rate 83 /min Celi Bills oxygen saturation, oximetry 98 % Celi Block blood pressure, diastolic 80 mm[Hg] Br ittany Block blood pressure, systolic 118 mm[Hg] Priti aditi Block weight E&M 207 [lb_av] Celi Block blood pressure, resting No Brit crista Block respiratory rate E&M 16 /min Brittan viviane Block height E&M 65 [in_i] Celi Block Body Mass Index (Ratio) 33.61 kg/m2 Rashad Rsoado MD blood pressure, diastolic 90 mm[Hg] Ch astity Johnathan blood pressure, systolic 122 mm[Hg] Gail stity Johnathan oxygen saturation, oximetry 98 % Chastity Johnathan pulse rate 94 /min Chastity Johnathan respiratory rate E&M 18 /min Chastit y Johnathan weight E&M 202 [lb_av] Chastity Johnathan height E&M 65 [in_i] Chastity Johnathan Body Mass Index (Ratio) 32.85 kg/m2 Rashad Rosado MD blood pressure, diastolic 86 mm[Hg] [facility], systolic 118 mm[Hg] Hector tai Altamont oxygen saturation, oximetry 98 % Sincere Celaya respiratory rate E&M 16 /min Abrams Celaya pulse rate 97 /min Abrams Celaya weight E&M 197.4 [lb_av] Sincere Celaya height E&M 65 [in_i] Abrams Celaya blood pressure, diastolic 77 mm[Hg] Dayanna Abdi blood pressure, systolic 112 mm[Hg] Lizbeth Abdi pulse rate 87 /min Tyree ballard oxygen saturation, oximetry 98 % Tyree Abdi respiratory rate E&M 16 /min Cuco Abdi Body Mass Index (Ratio) 33.38 kg/m2 Marilee Abdi weight E&M 200.6 [lb_av] Tyree noriega Body Mass Index (Ratio) 34.74 kg/m2 Nancy Walkerdney blood pressure, diastolic 87 mm[Hg] Juan Manuel mccullough Jeison blood pressure, systolic 121 mm[Hg] Jay Walkerdney pulse rate 76 /min Roma Walkerdney oxygen saturation, oximetry 98 % Roma Walkerdney respiratory rate E&M 16 /min Roma Walkerdney weight E&M 208 [lb_av] Roma Walkerdney height E&M 65 [in_i] Juan ManuelMitzisridevisherly Jeison blood pressure, diastolic 81 mm[Hg] Francis Ardon RN blood pressure, systolic 123 mm[Hg] Jamshid Ardon RN pulse rate 90 /min Jamshid Ardon RN oxygen saturation, oximetry 98 % Jamshid Ardon RN respiratory rate E&M 16 /min Jamshid houston RN weight E&M 171 [lb_av] Jamshid Ardon RN blood pressure, diastolic, right arm 80 m m[Hg] Emerson Manacop blood pressure, systolic, right arm 107 m m[Hg] Emerson Manacop blood pressure, diastolic 80 mm[Hg] Bronwyn cunningham [place] blood pressure, systolic 107 mm[Hg] Jose freed Man[place] pulse rate 103 /min Emerson Manacop oxygen saturation, oximetry 98 % Emerson Manacop respiratory rate E&M 16 /min Emerson Manacop weight E&M 176 [lb_av] Emerson Manacokarla blood pressure, diastolic 62 mm[Hg] Antonio Salmeron blood pressure, systolic 106 mm[Hg] Calvin lu Jaron pulse rate 45 /min Liliana Jaron oxygen saturation, oximetry 98 % Liliana Salmeron respiratory rate E&M 16 /min Frantz Salmeron weight E&M 168 [lb_av] Liliana Salmeron blood pressure, diastolic, left arm 75 mm [Hg] Liliana Salmeron blood pressure, systolic, left arm 92 mm[ Hg] Liliana Salmeron blood pressure, diastolic, right arm 118 mm[Hg] Liliana Salmeron blood pressure, systolic, right arm 132 m m[Hg] Liliana Salmeron pulse rate 75 /min Liilana Salmeron oxygen saturation, oximetry 98 % Liliana Salmeron respiratory rate E&M 16 /min Frantz Salmeron weight E&M 164 [lb_av] Liliana Salmeron blood pressure, diastolic 43 mm[Hg] Ca toshamartina Liliana blood pressure, systolic 103 mm[Hg] Can ericsherly Liliana blood pressure, diastolic 88 mm[Hg] Francis Ardon RN blood pressure, systolic 130 mm[Hg] Jamshid Ardon RN pulse rate 96 /min Jamshid Ardon RN oxygen saturation, oximetry 99 % Jamshid Ardon RN respiratory rate E&M 16 /min Jamshid houston RN weight E&M 164 [lb_av] Jamshid Ardon RN RESULTS Date Observation Value Provider Reference Range Interpretation Location alanine aminotransferase (SGPT), serum 15 1/L [facility] 6-40 Normal aspartate aminotransferase (SGOT), serum 17 1/L [facility] 10-30 Normal alkaline phosphatase, serum 93 1/L [facility] 33-115 Normal bilirubin, serum, total 0.3 mg/dL [facility] 0.2-1.2 Normal albumin/globulin ratio, serum 1.5 (calc) [facility] 1.0-2.1 Normal globulins, serum, total 3.0 G/DL (CALC) [facility] 2.2-3.9 Normal albumin, serum 4.4 g/dL [facility] 3.6-5.1 Normal protein, total, serum 7.4 g/dL [facility] 6.2-8.3 Normal calcium, serum 9.3 mg/dL [facility] 8.6-10.2 Normal carbon dioxide, venous blood 29 mmol/L [facility] 21-33 Normal chloride, serum 102 mmol/L [facility] 98-110 Normal potassium, serum 4.4 mmol/L [facility] 3.5-5.3 Normal sodium, serum 141 mmol/L [facility] 135-146 Normal urea nitrogen/creatinine ratio, serum NOT APPLICABLE (calc) [facility] 6-22 Estimated Glomerular Filtration Rate (calc) >60 mL/min/1.73m2 [facility] > OR = 60 Normal creatinine, serum 0.84 mg/dL [facility] 0.58-1.06 Normal urea nitrogen, blood 12 mg/dL [facility] 7-25 Normal blood glucose, random 87 mg/dL [facility] 65-99 Normal thyroid stimulating hormone, serum 1.47 u[IU]/mL [facility] Normal free thyroxine index 2.3 [facility] 1.4-3.8 Normal thyroxine, serum, total 12.3 ug/dL [facility] 4.5-12.5 Normal triiodothyronine resin uptake 19 % [facility] 22-35 Low B-type natriuretic peptide 38 pg/mL Sara Torres RN alanine aminotransferase (SGPT), serum 9 1/L Sara Torres RN aspartate aminotransferase (SGOT), serum 25 1/L Sara Torres RN magnesium, serum 1.8 mg/dL Sara Torres RN calcium, serum 9.7 mg/dL Sara Torres RN blood glucose, random 108 mg/dL Sraa Torres RN creatinine, serum 0.70 mg/dL Sara Torres RN urea nitrogen, blood 10 mg/dL Sara Torres RN carbon dioxide, serum, total 30 mmol/L Sara Torres RN chloride, serum 102 mmol/L Sara Torres RN potassium, serum 4.5 mmol/L Sara Torres RN sodium, serum 143 mmol/L aSra Torres RN platelet count 241 10*3/uL Sara Torres RN hematocrit, blood 39.8 % Sara Torres RN hemoglobin, blood 13.5 g/dL Sara Torres leukocyte count, blood 7.8 10*3/mm3 Sara Torres RN HISTORY OF MEDICATION USE Medication Status Instructions Dates Provider Indications Com luis alberto Jiménez 2.5 mg/0.5 mL pen injector active Inject 1 pen injector subcutaneously once a week for 4 weeks Margi NOGUEIRA metoprolol tartrate 25 mg tablet completed Take 1 tablet by mouth twice a day - Valerio Rosado MD bupropion HCl 150 mg tablet sustained-rele ase 12 hr active 1 tablet once a day Margi NOGUEIRA AMBIEN 10 MG ORAL TABLET completed ONE TAB. AT BEDTIME - Sincere Smytham ESTRADIOL 2 MG ORAL TABLET active Take 1 tablet once a day Valerio Rosado MD MOTRIN IB 200 MG ORAL TABLET completed 1 tab three times daily with food as needed - Sincere Celaya ULTRAM 50 MG ORAL TABLET completed twice daily as needed - Sincere Smytham ASPIRIN 325 MG ORAL TABLET completed one tab daily - Sincere Celaya BYSTOLIC 5 MG ORAL TABLET completed po twice daily - Emerson Lucero ZOLOFT 50 MG ORAL TABLET completed ONE TAB. DAILY - Sincere Celaya PREMARIN TABLET completed .0625 daily - Sincere Celaya TOPROL XL 50 MG ORAL TABLET EXTENDED RELEASE 24 HOUR completed ONE TAB DAILY - Edie Weber MD SOCIAL HISTORY Date Observation Value Provider personal history of marijuana use no Valerio Rosado MD drug use no Valerio Haynes alcohol use, average drinks per day social Valerio Rosado MD alcohol use yes Valerio Haynes passive cigarette sm anna exposure no Valerio Rosado MD smoking status Never smoker Valerio Rosado MD personal history of marijuana use no Margi Ventimiglia [facility] alcohol use, average drinks per day social Margi Ventimiglia [facility] drug use no Margi Ventimig ivan [facility] alcohol use yes Margi Ventimig ivan [facility] passive cigarette sm anna exposure no Margi Ventimiglia [facility] smoking status Never smoker Margi Ventim iglia [facility] social history reviewed E&M revi ewed - no changes required Valerio Rosado MD Exercise counseling yes Kym Brock social history reviewed E&M revi ewed - no changes required Valerio Rosado MD social history E&M Marital Statu s: L jules with family/friends E thnicity: C hildren: 3 Smoking History: P anju has never smoked. Valerio Rosado MD social history reviewed E&M revi ewed - no changes required Valerio Rosado MD seatbelt usage 100 % Celi sifuentes physical exercise, frequency, days per week no Celi Bills caffeine use, averag e drinks per day no Celi Bills passive cigarette sm anna exposure no Celi Bills smoking status Never smoker Celi sifuentes social history E&M Marital Statu s: L jules with family/friends E thnicity: Radha marquis: 3 Smoking History: Karla rene has never smoked. Valerio Rosado MD social history reviewed E&M revi ewed - no changes required Valerio Rosado MD seatbelt usage 100 % Chastity Hogu e physical exercise, frequency, days per week no Chastity Johnathan alcohol use, average drinks per day none Chastity Johnathan alcohol use no Chastity Johnathan caffeine use, averag e drinks per day no Chastity Johnathan drug use no Chastity Johnathan passive cigarette sm anna exposure no Chastity Johnathan smoking status Never smoker Chastity Hogu e social history E&M Marital Statu s: L jules with family/friends E thnicity: Smoking History: P anju has never smoked. Radha marquis: 3 Valerio Rosado MD social history reviewed E&M revi ewed - no changes required Valerio Rosado MD seatbelt usage 100 % Abrams Ingra m physical exercise, frequency, days per week no Abrams Celaya alcohol use, average drinks per day none Sincere Celaya alcohol use no Sincere Celaya caffeine use, averag e drinks per day no Abrams Celaya drug use no Abrams Celaya passive cigarette sm anna exposure no Abrams Celaya smoking status Never smoker Sincere Ingra m social history reviewed E&M revi ewed - no changes required Valerio Rosado MD social history E&M Marital Statu s: L jules with family/friends E thnicity: Valerio Rosado MD seatbelt usage 100 % Tyree Dumont physical exercise, frequency, days per week no Tyree Abdi alcohol use, average drinks per day none Tyree Abdi alcohol use no Tyree ballard caffeine use, averag e drinks per day no Tyree Abdi drug use no Tyree ballard passive cigarette sm anna exposure no Tyree Abdi smoking status Never smoker Tyree Adames kyliehesham seatbelt usage 100 % Valerio Rosado MD passive cigarette sm anna exposure no Valerio Rosado MD drug use no Valerio Haynes social history reviewed E&M reviewed Valerio Rosado MD smoking status never smoker Roma pan social history reviewed E&M reviewed Jamshid Ardon RN social history reviewed E&M reviewed Jamshid Ardon RN social history reviewed E&M reviewed Jamshid Ardon RN social history reviewed E&M reviewed Edie Weber MD social history E&M Marital Statu s: L jules with family/friends E thnicity: Jamshid Ardon RN social history reviewed E&M reviewed Jamshid Ardon RN physical exercise, frequency, days per week no [facility] caffeine use, averag e drinks per day no [facility] alcohol use, average drinks per day none [facility] smoking status Non-smoker [facility] FUNCTIONAL STATUS Date Observation Value Provider HRA, CV Assess/Plan, Angina (inactive) Management Plan continue current therapy Margi NOGUEIRA HRA, CV Assess/Plan, Angina (inactive) Management Plan continue current therapy Valerio Rosado MD HRA, CV Assess/Plan, Angina (inactive) Management Plan continue current therapy Valerio Rosado MD HRA, CV Assess/Plan, Angina (inactive) Management Plan continue current therapy Valerio Rosado MD HRA, CV Assess/Plan, Angina (inactive) Management Plan continue current therapy Valerio Rosado MD periodic limb moveme nt index absent (0) Kim Ford MENTAL STATUS Date Observation Value Provider assessment of judgme nt and insight E&M Alert and oriented to time, place and person. Mood and affect are normal. Valerio Rosado MD assessment of judgme nt and insight E&M Alert and oriented to time, place and person. Mood and affect are normal.depressed affect. Jamshid Ardon RN assessment of judgme nt and insight E&M Alert and oriented to time, place and person. Mood and affect are normal.depressed affect. Jamshid Ardon RN assessment of judgme nt and insight E&M Alert and oriented to time, place and person. Mood and affect are normal.depressed affect. Jamshid Ardon RN assessment of judgme nt and insight E&M Alert and oriented to time, place and person. Mood and affect are normal.depressed affect. Edie Weber MD assessment of judgme nt and insight E&M Alert and oriented to time, place and person. Mood and affect are normal.depressed affect. Jamshid Ardon RN FAMILY HISTORY Family Member Condition First Degree Blood Relative No Known Fam dharmesh History INSURANCE PROVIDERS Payer name Policy type / Coverage type Waldo red green party ID [employer] [id number] ADVANCE DIRECTIVES Name Date DISCUSSED - NO DECISION MADE TREATMENT PLAN Date Name Performer [id number],B, Valerio matos MD [id number],S, Valerio matos MD [id number],S, Valerio matos MD [id number],C,Had to resche dule stress test. Valerio Rosado MD [id number],S, Valerio matos MD [id number],W,S tono COVID. Check stress test and ECHO Valerio Roasdo MD [id number],S,Start metopro lol Valerio Rosado MD Cardiology Valerio Rosado MD Cardiology Valerio Rosado MD Cardiology Valerio Rosado MD Cardiology Valerio Rosado MD Cardiology Margi Ventimigl ia [facility] Cardiology:rare occu rence o ff BB. e ncourage stress reduction and avoidance of caffeine Margi Ventimiglia [facility] Cardiology:Had a one time episode post stressful event at work N one since. If recurrent will plan for repeat stress and eco Margi Ventimiglia [facility] Cardiology Valerio Rosado MD Cardiology Valerio Rosado MD Cardiology Valerio Rosado MD Cardiology:Had to reschedule str ess test. Valerio Rosado MD Cardiology Valerio Rosado MD Cardiology:Since COVID. Check st ress test and ECHO Valerio Rosado MD Cardiology:Start metoprolol Rashad Rosado MD Cardiology Valerio Rosado MD Cardiology Valerio Rosado MD Cardiology Valerio Rosado MD Cardiology Valerio Rosado MD Cardiology Valerio Rosado MD Cardiology Valerio Rosado MD Cardiology Valerio Rosado MD Cardiology Valerio Rosado MD Cardiology Valerio Rosado MD Cardiology Valerio Rosado MD Cardiology Valerio Rosado MD Cardiology Valerio Rosado MD Cardiology Valerio Rosado MD Cardiology Valerio Rosado MD Cardiology Valerio Rosado MD FOLLOW UP: H er updated medication list for this problem includes: Aspirin 325 Mg Tabs (Aspirin) ..... One tab daily Orders: C omplete Echo ([id number]) Valerio Rosado MD FOLLOW UP: H er updated medication list for this problem includes: Aspirin 325 Mg Tabs (Aspirin) ..... One tab daily Valerio Rosado MD FOLLOW UP: H er updated medication list for this problem includes: Aspirin 325 Mg Tabs (Aspirin) ..... One tab daily Orders: C omplete Echo ([id number]) Valerio Rosado MD FOLLOW UP: H er updated medication list for this problem includes: Aspirin 325 Mg Tabs (Aspirin) ..... One tab daily Orders: M obile Cardiac Tele ([id number]) C omplete Echo ([id number]) Valerio Rosado MD f/u- letter fxd: T he following medications were removed from the medication list: Toprol Xl 50 Mg Tb24 (Metoprolol succinate) ..... One tab daily Her updated medication list for this problem includes: Bystolic 5 Mg Tabs (Nebivolol hcl) ..... Po twice daily Edie Weber MD f/u- letter fxd: T he following medications were removed from the medication list: Toprol Xl 50 Mg Tb24 (Metoprolol succinate) ..... One tab daily Her updated medication list for this problem includes: Bystolic 5 Mg Tabs (Nebivolol hcl) ..... Po twice daily BP today: / Prior BP: 103/43 (04/30/2009) H gb: 13.5 (02/09/2009) HCT: 39.8 (02/09/2009) WBC: 7.8 (02/09/2009) B UN: 10 (02/09/2009) Creat: 0.70 (02/09/2009) Glucose: 108 (02/09/2009) N a+: 143 (02/09/2009) K+: 4.5 (02/09/2009) Cl: 102 (02/09/2009) Calcium: 9.7 (02/09/2009) Mg++: 1.8 (02/09/2009) E chocardiogram: Normal LV systolic function, size, and wall thickness. Normal LV diastolic function. Normal E/E` 5.6. LV EF 60%. Trace MR. Slight MVP. No significant valvular abnormalities. CNE (04/30/2009) Edie Weber MD f/u- letter fxd: T he following medications were removed from the medication list: Toprol Xl 50 Mg Tb24 (Metoprolol succinate) ..... One tab daily Her updated medication list for this problem includes: Bystolic 5 Mg Tabs (Nebivolol hcl) ..... Po twice daily BP today: / Prior BP: 103/43 (04/30/2009) H gb: 13.5 (02/09/2009) HCT: 39.8 (02/09/2009) WBC: 7.8 (02/09/2009) B UN: 10 (02/09/2009) Creat: 0.70 (02/09/2009) Glucose: 108 (02/09/2009) N a+: 143 (02/09/2009) K+: 4.5 (02/09/2009) Cl: 102 (02/09/2009) Calcium: 9.7 (02/09/2009) Mg++: 1.8 (02/09/2009) E chocardiogram: Normal LV systolic function, size, and wall thickness. Normal LV diastolic function. Normal E/E` 5.6. LV EF 60%. Trace MR. Slight MVP. No significant valvular abnormalities. CNE (04/30/2009) Edie Weber MD Date Name Stress Exercise Card iolite Complete Echo Stress Exercise Card iolite Complete Echo STR - Nuclear Mobile Cardiac Tele Sleep Study Home Complete Echo Complete Echo Complete Echo Mobile Cardiac Tele THYROID PANEL WITH T SH, 3RD GENERATION COMPREHENSIVE METABO LIC PANEL W/EGFR Holter Monitor 24 Hr Complete Echo Stress Test - Nuclea r Stress Test - Routin e Complete Echo HISTORY OF PROCEDURES Procedure Date Procedure Name Provider Procedure Notes S tatus EKG Valerio Rosado MD complete d EKG Valerio Rosado MD complete d EKG Valerio Rosado MD complete d EKG Valerio Rosado MD complete d Cardiolite, 2 units Valerio Rosado MD completed SPECT Images Silviano Gatica MD complet ed Stress EKG Silviano Gatica MD completed Event Monitor Valerio Rosado MD compl eted EKG Valerio Rosado MD complete d SNOMED-CT: [id number] Current Medications Documented Valerio Rosado MD completed EKG Valerio Rosado MD complete d SNOMED-CT: [id number] Current Medications Documented Valerio Rosado MD completed EKG Valerio Rosado MD complete d EKG Edie Weber MD complet ed EKG Edie Weber MD complet ed
--- OUTSIDE RECORDS SUMMARY | 2024-12-31 08:04 | XMS_ITS | Clinical Summary ---
Author Organization [facility] Address [address] [place] [address] Care Team Providers Care Pick Up Worker Name Role Phone Arun Khan MD Primary Care Provider [phone] Source Comments [facility],non-owned Affiliates and Associated Physician Practices is amultiple site organization consisting of ambulatory clinics and hospital sitesin [place], [place], [place] and [place]. This disclosure is being madepursuant to the Care Everywhere program and may not contain all information available regarding this patient. Last updated 18.[facility] Allergies Active Allergy Reactions Criticality Noted Date Comments Contrast-Iodinated Agents For Ct/Other 12/20/2016 Meperidine GI Discomfort 12/20/2016 Oseltamivir Seizures High 09/25/2019 Tamiflu Seizures High 07/18/2022 Medications * Be aware that medications may not be up to date on this document. Alwaysverify current medications with the patient. BuPROPion HCl (WELLBUTRIN PO) Take 150 mg by mouth once daily Active estradiol (ESTRACE) 1 MG tablet Take 1 mg by mouth once daily Active Multiple Vitamin (MULTI-VITAMIN DAILY PO) Active diazePAM (Valium) 5 MG tabletIndication s:Left ear pain,TMJ (temporomandibul ar joint disorder),Bruxis m Take 1 (one) tablet by mouth once daily 30 tablet 07/18/2022 Active Active Problems No known active problems Social History Tobacco Use Types Packs/Day Years Used Date Smoking Tobacco: Never Smokeless Tobacco: Never Tobacco Cessation:Counseling Given: Not Answered Comments No Sex and Gender Information Value Date Recorded Sex Assigned at Not on file Legal Sex Female 6:18 AM WAITER/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 Gender Identity Not on file Sexual Orientation Not on file Last Filed Vital Signs Vital Sign Reading Time Taken Comments Blood Pressure 131/87 07/18/2022 8:47 AM WAITER/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 Pulse 111 07/18/2022 8:47 AM WAITER/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 Temperature 36.1 C (97 F) 09/14/2021 10:59 AM WAITER/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 Respiratory Rate 16 09/14/2021 10:59 AM WAITER/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 Oxygen Saturation 98% 09/14/2021 10:59 AM WAITER/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 Inhaled Oxygen Concentration - - Weight 102.5 kg (226 lb) 07/18/2022 8:47 AM WAITER/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 Height 165.1 cm (5' 5 ) 07/18/2022 8:47 AM WAITER/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 Body Mass Index 37.61 07/18/2022 8:47 AM WAITER/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 Plan of Treatment Health Maintenance Due Date [...] - 2023-2 5 season) 2024 02/02/2021, 01/03/2021 DEPRESSION SCREENING 09/04/2024 INFLUENZA VACCINE (Season Ended) 2025 HEPATITIS C SCREENING Completed 05/27/2021 HIB VACCINE Aged Out No longer eligi ble based on patient's age to complete this topic HPV VACCINE Aged Out No longer eligi ble based on patient's age to complete this topic MENINGOCOCCAL (Group B) VACCINE SHARED DECISION-MAKING Aged Out No longer eligible based on patient's age to complete this topic MENINGOCOCCAL GROUPS A/C/Y/W VACCINE Aged Out No longer eligible b [...] Resulting Agency Comment Lab Testing performed at: [address] [id number] us Clark Farley MD LAB - CHEMISTRY ORDERABLES Final Result [facility] ACCOUNT BILL [address] [place] [address] from Last 3 Months or Most Recently Relevant to Health Maintenance Insurance [employer] Care Teams Pick Up Worker Relationship Specialty Start Date End Date Arun Khan MD [address] [place] [address] [address] [place] [address] PCP - General 07/13/22
== END 2024-12-31 07:58 | disposition home or self-care (01) ==
LOC: CHSIMG 08:00
PROVIDERS: PCP Student in an Organized Health Care Education/Training Program; Visit Provider Student in an Organized Health Care Education/Training Program
DX: Z12.31 Encounter for screening mammogram for malignant neoplasm of breast (principal)
CPT/HCPCS: 77063; 77067

== ENCOUNTER 2025-06-30 16:18 | Emergency (ER) | payer BC, SELFPAY ==
[2025-06-30 16:32] VITALS: BP 116/83; PULSE 98; RESP 16; TEMP 36.3; O2SAT 100
--- NOTE | 2025-06-30 17:14 | ED.URI ---
HPI - URI/Sore Throat General Chief Complaint: Upper Respiratory Infection Stated Complaint: Sore Throat Time Seen by Provider: 06/30/25 17:00 Source: patient and RN notes reviewed Mode of arrival: ambulatory Limitations: no limitations History of Present Illness HPI Narrative: 49-year-old female presents Express Care complaining of upper respiratory symptoms for approximately 8 days. Patient reports congestion, sore throat, mucopurulent cough, subjective fevers. Patient denies any chest pain, difficulty breathing, nausea vomiting, diarrhea abdominal pain, any other upper respiratory symptoms, headaches, or any other symptoms. Patient taking DayQuil NyQuil to help with symptoms. Patient denies any significant past medical history. Patient said over the last 2 days or symptoms of got significantly worse, worsening sore throat and congestion. Related Data Home Medications ?Medication ?Instructions ?Recorded ?Confirmed ?Last Taken ?Type insulin syringe-needle U-100 1 mL #10 ea 12/20/24 05/08/25 Unknown History 31 gauge x 5/16 progesterone micronized 200 mg 200 mg PO 12/20/24 05/08/25 Unknown History capsule testosterone 25 mg implant pellet mg implant 12/20/24 05/08/25 Unknown History cholecalciferol (vitamin D3) 25 25 mcg PO DAILY 02/17/25 06/30/25 Unknown History mcg (1,000 unit) capsule tirzepatide 5 mg/0.5 mL 5 mg subcut WEEKLY 02/17/25 06/30/25 Unknown History subcutaneous pen injector (Jessy) Held on 05/01/25. Instructions: Home Medication placed on hold at Doctor's office levetiracetam 500 mg tablet 500 mg PO Q12H 05/01/25 06/30/25 Unknown History (Martha) Allergies Allergy/AdvReac Type Severity Reaction Status Date / Time meperidine Allergy Severe Vomiting Verified 06/30/25 16:37 ioversol Allergy Intermediate Hives Verified 06/30/25 16:37 iodixanol Allergy Mild itchey Verified 06/30/25 16:37 throat, hives, shaking, sneezing Contrast Media Allergy Intermediate Hives / Uncoded 05/01/25 07:58 Red Face Review of Systems Review of Systems: CONSTITUTIONAL: Denies body aches, chills, or sweats. Positive for subjective fevers. EYES: Denies visual changes, redness, or discharge. ENT: Denies rhinorrhea, or otalgia. Positive for congestion sore throat. CARDIOVASCULAR: Denies chest pain, palpitations, or edema. RESPIRATORY: Positive for cough. Negative for wheezing or Dyspnea. GASTROINTESTINAL: Denies abdominal pain, nausea, vomiting, or diarrhea. GENITOURINARY: Denies dysuria or hematuria. SKIN: Denies rash or itching. MUSCULOSKELETAL: Denies back pain, joint pain, or myalgia. NEUROLOGIC: Denies headache, numbness, or weakness. PSYCHIATRIC: Denies anxiety or depression. All other systems reviewed are negative, except as documented in HPI. [facility] Past Medical History Medical History Screening mammogram for breast cancer Fibrous breast lumps Screening for breast cancer Hyperlipidemia Encounter for gynecological examination Depression Surgical History Surgical History H/O cardiac radiofrequency ablation History of tonsillectomy Hx of appendectomy History of delivery 3 H/O: hysterectomy Family History Family History Grandparent Family history of malignant neoplasm of breast Mother Diabetes mellitus Hypertension Patient's mother is in good health Father Patient's father is in good health Other Cerebrovascular accident Family history of alcoholism Family history of arthritis Family history of atrial fibrillation Family history of cardiovascular disease Family history of chronic obstructive pulmonary disease Family history of hepatitis Family history of lung cancer Family history of malignant neoplasm of male breast Family history of osteoporosis Social History Social History Smoking status: Never smoker Alcohol intake: current Substance use: never Do You Feel Safe in your Home?: Yes Lack of Transportation: No Lack of Food: Never True Current Housing: I Have Housing Concerned About Future Housing: No Difficulty Paying Gas/Electric Bills: No Difficulty Paying for Meds: No Currently Unemployed: No Education: Trade/Vocational Certificate Difficulty w/ Childcare or Family Care: No Living arrangements: with family Occupation/Education: occupation Gender identity (if verbalized by the patient): Female Sexual Orientation (if Verbalized by the Patient): Straight or Heterosexual Comments At the time of my signature, I reviewed and agree with the nursing past medical, surgical, social, and family history. There is no relevant family history pertinent to the patient complaint. Exam Narrative: GENERAL: This is a well-nourished, well-developed adult, in no apparent distress. They are non ill-appearing, nontoxic appearing. HEAD: normocephalic, atraumatic. EYES: Sclera clear/white. Conjunctiva normal. Vision is grossly intact. Extraocular movements intact EARS: External ears normal, auditory canals clear and without drainage, TMs normal without perforation. Hearing grossly intact. NOSE: External nose normal with no obvious nasal discharge, nasal turbinates erythematous with exudate present, no rhinorrhea. THROAT: Mucous membranes moist, posterior pharynx erythematous. Uvula midline. Postnasal drip present. NECK: Neck supple, mild cervical lymphadenopathy without masses or thyromegaly. CARDIOVASCULAR: Regular rate and rhythm without murmurs, gallops, or rubs. RESPIRATORY: Clear to auscultation. Breath sounds equal bilaterally. No wheezes, rales, or rhonchi. SKIN: warm, Dry, intact with no suspicious lesions or rash, good texture and turgor. NEURO: awake, alert, and oriented to person, place and time. There were no obvious focal neurologic abnormalities. EXTREMITIES: No joint tenderness, effusion, or edema noted. BACK: Nontender without deformity. No CVA tenderness. Course Course Emergency Course: Portions of this record may have been created with voice recognition software Level of Care: Express Care Visit Vital Signs Vital signs: Vital Signs Temperature 97.3 F L 06/30/25 16:32 Pulse Rate 98 06/30/25 16:32 Respiratory Rate 16 06/30/25 16:32 Blood Pressure 116/83 06/30/25 16:32 Pulse Oximetry 100 06/30/25 16:32 Temperature 97.3 F L 06/30/25 16:32 Pulse Rate 98 06/30/25 16:32 Respiratory Rate 16 06/30/25 16:32 Blood Pressure 116/83 06/30/25 16:32 Pulse Oximetry 100 06/30/25 16:32 Reviewed MDM - URI/Sore Throat MDM Narrative Medical decision making narrative: Rapid strep negative. Throat culture pending. Given length of symptoms likely patient has bacterial sinusitis. Will treat with Augmentin. Discussed physical exam findings. Advised supportive measures and signs/symptoms to go to the ER. Pt is appropriate for outpt treatment and f/u. Differential Diagnosis Differential diagnosis: Likely upper respiratory infection, otitis media, sinusitis, viral infection and pharyngitis Lab Data Attestation: I reviewed the patient's lab results. Critical Care Time Critical Care Time Critical Care Time: No Discharge Plan Discharge Clinical Impression: Sinusitis Qualifiers: Sinusitis location: unspecified location Chronicity: acute Recurrence: non-recurrent Qualified Code(s): J01.90 - Acute sinusitis, unspecified Patient Disposition: Home Condition: Stable Instructions: Antibiotic Form, Sinusitis (ED) Additional Instructions: Take the antibiotics as directed and complete the course even if you start to feel better. You may use a Neti pot saline rinse 3 times a day with lukewarm distilled water Continue to take Tylenol or Motrin as needed for pain or fevers. Follow instructions on the bottle. If you take DayQuil or NyQuil do not take additional Tylenol as it they are ready contain Tylenol and it. Use a humidifier or vaporizer at night. Drink plenty of water. 8-10 glasses per day. Use flonase 2 times per day for 5 days then as needed Take mucinex 2 times per day and be sure to take with 8oz of water. Follow up with Primary provider in 3-5 days Please go to the ER if he develops any difficulty breathing, uncontrolled fevers, chest pains, vomiting, worsening symptoms, or any other concerns Patient Language: Canadian Prescriptions: New amoxicillin-pot clavulanate 875-125 mg tablet 1 tablet PO Q12H 7 Days Qty: 14 0RF No Action Mounjaro 5 mg/0.5 mL pen injector 5 mg subcut WEEKLY cholecalciferol (vitamin D3) 25 mcg (1,000 unit) capsule 25 mcg PO DAILY progesterone micronized 200 mg capsule 200 mg PO (DME) insulin syringe-needle U-100 1 mL 31 gauge x 5/16 syringe See Rx Instructions .ROUTE .MEDSUPPLY Qty: 10 Rx Instructions: As directed testosterone 25 mg pellet implant levetiracetam [Keppra] 500 mg tablet 500 mg PO Q12H bupropion HCl 150 mg tablet sustained-release 12 hr See Rx Instructions .ROUTE .COMPLEX Qty: 180 0RF Dose Instruction: TAKE 1 TABLET BY MOUTH TWICE DAILY Rx Instructions: TAKE 1 TABLET BY MOUTH TWICE DAILY estradiol 1 mg tablet 1 mg PO DAILY Qty: 30 3RF Follow-up/Referrals: Milka Le APRN [Primary Care Provider, Internal Medicine] Time of Disposition: 17:12
[2025-06-30 17:15] LABS: EDSTREPNEGPOS1 Negative (Negative)
== END 2025-06-30 17:17 | disposition home or self-care (01) ==
PROVIDERS: PCP Nurse Practitioner Family
DX: J01.90 Acute sinusitis, unspecified (principal); E78.5 Hyperlipidemia, unspecified; F32.A Depression, unspecified
CPT/HCPCS: 87081; 87880; 99213; G0463